=== PATIENT | female | born 1990 | race Caucasian/White ===

== ENCOUNTER 2017-05-07 18:55 | Inpatient (IN) | payer OTHER, SELFPAY ==
[2017-05-07] MEDS: Lactated Ringers 1,000 ML 50 ML IV (20:55)
[2017-05-07] MEDS: 0.9% Normal Saline 100 ML IV.SOLN. INTRA-UTER (21:22)
--- NOTE | 2017-05-07 21:26 | PCM.HP.OB ---
History Date of Admission: 05/07/17 Final LETY: 05/01/17 Final LETY Source: LMP Gestational age: 40 Weeks and 6 Days History of this : @ 40.6 wks here for IOL for Post EDC. Pt reports not feeling ctx. No bleeding or LOF. Pertinent Past Medical History: PMH: nasal bone fracture PSX: Nasal repair, Mole excision left shoulder Current Medications Acetaminophen (Tylenol) 325 - 650 mg PO Q4H PRN PRN PRN Reason: PAIN OR FEVER >100.4F Al Hydroxide/Mg Hydroxide (Mylanta Ii) 15 - 30 ml PO Q4H PRN PRN PRN Reason: INDIGESTION Citric Acid/Sodium Citrate (Bicitra) 30 ml PO UD PRN Lactated Ringer's () 1,000 mls @ 50 mls/hr IV .Q20H ETHAN Oxytocin/Sodium Chloride () 30 units in 500 mls @ 1 mls/hr IV .Q500H ETHAN Nalbuphine HCl (Nubain) 5 - 10 mg IV Q3H PRN PRN PRN Reason: PAIN (4-10/10) Ondansetron HCl (Zofran) 4 mg IV Q8H PRN PRN PRN Reason: NAUSEA Promethazine HCl (Phenergan (Ll)) 6.25 - 12.5 mg IV Q4H PRN PRN; Protocol PRN Reason: IF NAUSEA PERSISTS Sodium Chloride () 5 - 15 ml IV UD ETHAN Smoking Status: Never smoker Alcohol: None Drug Use: none Number of Fetus(es): 1 Physical Exam General: Alert, Oriented x3 Abdomen: Soft, Non Tender, Gravid Estimated gestational size: Appropriate for gestational size Presentation: Cephalic Cervix Dilation (cm): 1 Station: -2 Effacement (%): 70 Assessment/Plan 27yo @ 40.6 wks for IOL for post edc 1) vieyra/pitocin 2) Monitor fhr/toco 3) PNL reviewed, HIV neg, RUB imm, syphilis neg, HEP B neg, GBS neg 4) anticipate
--- NOTE | 2017-05-07 21:30 | PCM.PN.BLA ---
Progress Note transcervical vieyra placed without difficulty. 30cc NS placed. FHR: 140s mod antonieta + accels no decels. Category1 reactive. TOCO; irregular.
[2017-05-07 21:39] LABS: Hematocrit 38.4 % (37-47); Mean Corp Hgb Conc 33.9 g/gl (32-36); Mean Corpuscular Hgb 31.3 pg (27.0-32.0); Mean Corpuscular Volume 92.5 fL (81-99); Mean Platelet Vol. 9.7 fl (6.2-12.0); Platelet Count 170 K/mm3 (150-450); RBC Distribution Width CV 13.3 % (11.6-14.6); RBC Distribution Width SD 44.4 fl (35.1-43.9); Red Blood Count 4.15 M/mm3 (4.2-5.4); White Blood Count 11.8 K/mm3 (4.4-11.0)
[2017-05-07 21:41] LABS: Scan Indicated on CBC? Y/N NO
[2017-05-07 22:03] VITALS: BMI 34.1
[2017-05-08] MEDS: Lactated Ringers 1,000 ML 50 ML IV ×5 (05:07→23:47)
[2017-05-08] MEDS: Oxytocin 30 units/NS 500 ml 30 UNITS/500 ML IV.SOLN IV (05:21)
[2017-05-08] MEDS: Nalbuphine 10 MG/ML Ampul IV (15:05)
[2017-05-08] MEDS: 0.9% Saline Lock 10 ML Syringe IV (19:34)
--- NOTE | 2017-05-08 21:55 | PN_ITS ---
Progress Note Patient has made slow change all day. Now significant change, /+1, mild caput. PRATEEK. FHTs normal baseline w/ moderate variability. Some early/ variable decels. Tocos- adequate contractions. Pelvis clinically adequate. EFW < 5000 gm. Comfortable w/ epidural. Cont. expectant management
[2017-05-09] VITALS (28 sets, daily range): BP systolic 107–144; BP diastolic 62–91; PULSE 99–127; RESP 15–20; TEMP 36.6–37.9; O2SAT 92–99
[2017-05-09] MEDS: Sodium Citrate/Citric Acid 30 ML UDC PO (02:23)
[2017-05-09] MEDS: Cefazolin 2 GM in 0.9% Normal Saline 100 ML IV ×2 (02:30→09:57)
[2017-05-09] MEDS: Oxytocin 30 units/NS 500 ml 30 UNITS/500 ML IV.SOLN 167 UNITS IV (02:39)
[2017-05-09] MEDS: Ketorolac 30 MG/ML Syringe IV ×3 (02:45→18:27)
--- NOTE | 2017-05-09 03:25 | PCM.OB.CSR ---
Delivery Classification: JOSEPH Final LETY: 05/01/17 Gestational age: 41 Weeks and 1 Days Indications for : - - arrest of dilation, prolonged active phase Description of Procedure: The patient was started for an induction of labor due to being 41 weeks gestation on 05/07/2017. She had a Alonso ripening that night. On the a.m. of 05/08/2017 she was ruptured for light meconium-stained fluid. Labor progressed slowly all day. She was 5-6 cm most of the day. Then she progressed to 8 then 8-9 and now 9. However, she is definitely had a prolonged active phase. When I discussed with the patient giving her some more time to see if she can get to complete versus section, she elects for section at this time. She has been trying to rest intermittently and is comfortable with her epidural. Her contraction pattern has been adequate all day. Despite this, the patient is exhausted, and even if she progressed to complete at this point I am not sure she will be able to adequately push. The patient was taken to the operating room. She was prepped and draped in the dorsal supine position with a leftward tilt. A Pfannenstiel skin incision was made approximately 2 cm above the symphysis pubis and carried through to underlying layer fascia with the scalpel. The fascia was incised incised in the midline and extended laterally with the Goodman scissors. The fascia was dissected off the rectus muscles with blunt and sharp dissection. The rectus muscles were in the midline and the peritoneum was entered [bluntly]. The peritoneal incision was stretched and the bladder blade was placed. The uterine incision was made in a low transverse fashion with the scalpel and extended superiorly and inferiorly with blunt dissection. The amniotic membranes were ruptured and mild meconium-stained fluid returned. The infant's head was brought to the incision in the flexed position and delivered without difficulty. The remainder of the infant was delivered with gentle traction and fundal pressure in the standard fashion. The mouth and nares were bulb suctioned. The cord was clamped and cut as the was stimulated. [Cord clamping was delayed]. The infant was handed off to the waiting nursing staff. The placenta was delivered with fundal massage and gentle traction in the standard fashion. The uterus was exteriorized and cleared of all clots and debris.. The uterine incision was closed with #1 Vicryl in a running locked fashion. A second layer of the same suture was used in an imbricating fashion and the incision was examined for hemostasis. There is some oozing along the peritoneal edges which was Bovie cauterized and some Karlee was placed. Hemostasis was noted. The uterus was placed back into the peritoneal cavity and hemostasis was assured. The rectus muscles were examined and any bleeding was Bovie cauterized. The parietal peritoneum and rectus muscles were closed en bloc with a #1 Vicryl suture. The rectus fascia was examined and the bleeding was Bovie cauterized and the rectus fascia was closed with #1 PDS suture in a running standard fashion. The subcutaneous tissue was examining and any bleeding was Bovie cauterized. [The subcutaneous tissue was reapproximated with 3-0 Vicryl suture.] The skin was closed in a subcuticular fashion [by the SLEEP LAB TECHNOLOGIST with me present in the labor and delivery suite]. All sponge, lap, and needle counts were correct. The patient was taken to her room for recovery in a stable condition. Amniotic Membrane Rupture Type: Artificial Amniotic Fluid Description: Lightly stained meconium Placenta Disposition: Sent to Pathology Drain: Alonso to straight drain Fluids Replaced: 500cc LR Cord Entanglement: Around neck x 1, loose Nuchal Cord Compression: Without compression Cord Vessel Description: 3 Vessels Esitmated Blood Loss (ml): 900 Gender: Female (1 minute): 8 (5 minute): 9 Delayed cord clamping: Yes Pre-op Antibiotic Given: - - zithromax - Admit VTE Documentation VTE Present on Admission: No VTE Mechan Device Prophylaxis: SCD's VTE Pharm Prophylaxis ordered?: No
--- NOTE | 2017-05-09 03:36 | OP.PCM_ITS ---
Delivery Classification: JOSEPH Final LETY: 05/01/17 Gestational age: 41 Weeks and 1 Days Indications for : - - arrest of dilation, prolonged active phase Description of Procedure: The patient was started for an induction of labor due to being 41 weeks gestation on 05/07/2017. She had a Alonso ripening that night. On the a.m. of 05/08 she was ruptured for light meconium-stained fluid. Labor progressed slowly all day. She was 5-6 cm most of the day. Then she progressed to 8 then 8-9 and now 9. However, she is definitely had a prolonged active phase. When I discussed with the patient giving her some more time to see if she can get to complete versus section, she elects for section at this time. She has been trying to rest intermittently and is comfortable with her epidural. Her contraction pattern has been adequate all day. Despite this, the patient is exhausted, and even if she progressed to complete at this point I am not sure she will be able to adequately push. The patient was taken to the operating room. She was prepped and draped in the dorsal supine position with a leftward tilt. A Pfannenstiel skin incision was made approximately 2 cm above the symphysis pubis and carried through to underlying layer fascia with the scalpel. The fascia was incised incised in the midline and extended laterally with the Goodman scissors. The fascia was dissected off the rectus muscles with blunt and sharp dissection. The rectus muscles were in the midline and the peritoneum was entered [bluntly]. The peritoneal incision was stretched and the bladder blade was placed. The uterine incision was made in a low transverse fashion with the scalpel and extended superiorly and inferiorly with blunt dissection. The amniotic membranes were ruptured and mild meconium-stained fluid returned. The 's head was brought to the incision in the flexed position and delivered without difficulty. The remainder of the infant was delivered with gentle traction and fundal pressure in the standard fashion. The mouth and nares were bulb suctioned. The cord was clamped and cut as the was stimulated. [Cord clamping was delayed]. The was handed off to the waiting nursing staff. The placenta was delivered with fundal massage and gentle traction in the standard fashion. The uterus was exteriorized and cleared of all clots and debris.. The uterine incision was closed with #1 Vicryl in a running locked fashion. A second layer of the same suture was used in an imbricating fashion and the incision was examined for hemostasis. There is some oozing along the peritoneal edges which was Bovie cauterized and some Karlee was placed. Hemostasis was noted. The uterus was placed back into the peritoneal cavity and hemostasis was assured. The rectus muscles were examined and any bleeding was Bovie cauterized. The parietal peritoneum and rectus muscles were closed en bloc with a #1 Vicryl suture. The rectus fascia was examined and the bleeding was Bovie cauterized and the rectus fascia was closed with #1 PDS suture in a running standard fashion. The subcutaneous tissue was examining and any bleeding was Bovie cauterized. [The subcutaneous tissue was reapproximated with 3-0 Vicryl suture.] The skin was closed in a subcuticular fashion [by the HIDE SPLITTER with me present in the labor and delivery suite]. All sponge, lap, and needle counts were correct. The patient was taken to her room for recovery in a stable condition. Amniotic Membrane Rupture Type: Artificial Amniotic Fluid Description: Lightly stained meconium Placenta Disposition: Sent to Pathology Drain: Alonso to straight drain Fluids Replaced: 500cc LR Cord Entanglement: Around neck x 1, loose Nuchal Cord Compression: Without compression Cord Vessel Description: 3 Vessels Esitmated Blood Loss (ml): 900 Gender: Female (1 minute): 8 (5 minute): 9 Delayed cord clamping: Yes Pre-op Antibiotic Given: - - zithromax - Admit VTE Documentation VTE Present on Admission: No VTE Mechan Device Prophylaxis: SCD's VTE Pharm Prophylaxis ordered?: No
--- NOTE | 2017-05-09 04:08 | PLAC_PTH ---
PATIENT: ISELA ENG LOC: [facility] U#:[id number] AGE/SX: 27/F ROOM: WP004 RE05/07/[address]: Dr. Dyan Ulloa MD : 1990 BED: 1 DIS: 05/12/2017 SPEC #: [id number] RECD: 05/09/17 09:30 STATUS: DIAZ REMatthias #: [id number] CASEY: 05/09/17 04:[address]: Dyan Ulloa DEPT: SURGICAL PATHOLOGY RECD BY: Sam Giorn ENTERED: 05/09/17 12:05 SP TYPE: PLACENTA OTHR DR: MD Dr. Nina Rasmussen MD Tissues: Placenta, NOS Procedures: Surgery Specimen Level V HEADER OPERATION: Primary section PRE-OP DIAGNOSIS: Prolonged rupture of membranes TISSUE SUBMITTED: Placenta MICROSCOPIC DIAGNOSIS Placenta: Placental disc - third trimester placenta (672 gm). Membranes ? mild acute chorioamnionitis. Umbilical cord - three blood vessels and no pathologic diagnosis. SJ:ellen 05/12/17 MICROSCOPIC DESCRIPTION Slides are reviewed. GROSS DESCRIPTION SPECIMEN: PLACENTA / CLINICAL INFORMATION: A. Weight: 4.052 kg B. Gestational Age: 41 weeks C. Sex: Female PLACENTAL WEIGHT (POST FIXATION): 672 gm PLACENTAL DIMENSIONS: 22 x 20 x 2.5 cm PLACENTAL SHAPE: Usual ovoid PLACENTAL WEIGHT FOR GESTATIONAL AGE: Over 99th percentile MEMBRANES - Present A. Insertion: Marginal B. Site of rupture from edge: 2 cm from edge of placental disc C. Color of membrane: Ruiz-pettit D. Abnormalities: None UMBILICAL CORD - Present A. Color: Ruiz-pettit B. Insertion: Near central C. Length: 31 cm D. Diameter: 1 to 1.5 cm E. Number of vessels: Three F. Abnormalities: None PLACENTAL DISC - Present A. Color of surface: Ruiz-pettit B. surface abnormalities: None C. Maternal cotyledons: Intact with minimal tears D. Attached retro placental clot: No clot E. Cut surface: Dark red and spongy F. Lesions: None G. Separate clot: Absent SECTIONS SUBMITTED: 1. Membrane roll and umbilical cord ( end notched) 2. Placental disc, and maternal surfaces 3. Placental disc, and maternal surfaces 4. Placental disc, and maternal surfaces AM:ellen 05/09/17 TC:2 CPT: 98837
[2017-05-09] MEDS: Methylergonovine 0.2 MG/ML Ampul IM (06:13)
--- NOTE | 2017-05-09 06:30 | NURSING ---
0600 pt off of recovery. fundus noted to be 2 fingerbreadths above umbilicus, firm and midline. peripad changed, moderate trickle of blood noted with fundal check. peripads [id number], fundus to 1 above umbilicus after trickle of lochia expressed, remains firm and midline. HR continues to be tachycardic 108-115. 0613 IM methergine given-pericare provided 0625 updated-orders received for CBC
--- NOTE | 2017-05-09 06:44 | NURSING ---
0640 CBC drawn, pt reported feeling more fluid leaking-moderate amt of rubra lochia noted to peripad-pad changed, fundus firm midline and one finer breadth above U-pad weighted 240ml 0645 HR 103 bp 118/68 0650 hr 103 bp 117/72-unit sec called notified to page to this RN phone [phone] returned page. notified of pad change again for 240ml-continue to have moderate trickles, fundus remains firm and one fingerbreadth above umbilicus-vital signs reviewed, order received from hemjael. Physician on way to unit
[2017-05-09 06:54] LABS: Hematocrit 30.7 % (37-47); Hemoglobin 10.5 g/dl (12.0-15.0); Mean Corp Hgb Conc 34.2 g/gl (32-36); Mean Corpuscular Hgb 32.1 pg (27.0-32.0); Mean Corpuscular Volume 93.9 fL (81-99); Mean Platelet Vol. 9.2 fl (6.2-12.0); Platelet Count 143 K/mm3 (150-450); RBC Distribution Width CV 13.1 % (11.6-14.6); RBC Distribution Width SD 43.4 fl (35.1-43.9); Red Blood Count 3.27 M/mm3 (4.2-5.4); White Blood Count 15.3 K/mm3 (4.4-11.0)
[2017-05-09] MEDS: Carboprost Tromethamine 250 MCG/ML Ampul IM (06:55)
[2017-05-09 06:56] LABS: Scan Indicated on CBC? Y/N NO
--- NOTE | 2017-05-09 06:58 | NURSING ---
0654 HR 104 bp 121/72 sp02 96% on 2 L 02 via nasal cannula temp 98.8 0655 hemabate given to left thigh-verified with Rasheed RN 0659 hr 102 bp 118/71 0701 peripad changed and [id number]
--- NOTE | 2017-05-09 07:30 | NURSING ---
Dr Gill in room, did ultrasound of uterus. Vag exam done and removed large clots from uterus. Pad weighed 411.
--- NOTE | 2017-05-09 07:41 | PCM.PN.BLA ---
Progress Note pt seen at bedside, Evaluated for bleeding- Manual exploration of uterus- Large clots in lower uterine segment 417g including pad weight. Ultrasound reveals no other signs of Retained POC. Pt has received methergine and Hemabate. Pt otherwise is asymptomatic- denies CP, SOB, dizziness. VS are stable at this time.
[2017-05-09] MEDS: Lactated Ringers 1,000 ML 100 ML IV ×2 (08:31→18:27)
[2017-05-09 09:52] LABS: Pathology Specimen OB SEE PATHOLOGY REPORT
[2017-05-09] MEDS: Senna/Docusate Sodium 1 Tablet PO (09:57)
[2017-05-09] MEDS: Acetaminophen 500 MG Tablet 1000 MG PO (10:11)
[2017-05-09 14:02] LABS: Hematocrit 28.7 % (37-47); Hemoglobin 9.9 g/dl (12.0-15.0); Mean Corp Hgb Conc 34.5 g/gl (32-36); Mean Corpuscular Hgb 32.4 pg (27.0-32.0); Mean Corpuscular Volume 93.8 fL (81-99); Platelet Count 146 K/mm3 (150-450); RBC Distribution Width CV 13.3 % (11.6-14.6); RBC Distribution Width SD 43.7 fl (35.1-43.9); Red Blood Count 3.06 M/mm3 (4.2-5.4); White Blood Count 15.8 K/mm3 (4.4-11.0)
[2017-05-09 14:03] LABS: Scan Indicated on CBC? Y/N NO
[2017-05-10] MEDS: Senna/Docusate Sodium 1 Tablet PO (00:39)
[2017-05-10 00:40] VITALS: BP 110/69; PULSE 108; RESP 18; TEMP 37; O2SAT 94
[2017-05-10] MEDS: 0.9% Saline Lock 10 ML Syringe IV ×4 (00:40→18:27)
[2017-05-10] MEDS: Ketorolac 30 MG/ML Syringe IV ×4 (00:40→18:27)
[2017-05-10 02:00] VITALS: RESP 16; O2SAT 97
[2017-05-10 04:30] VITALS: BP 106/63; PULSE 86; RESP 18; TEMP 36.6; O2SAT 99
[2017-05-10 05:11] LABS: Hematocrit 26.6 % (37-47); Mean Corp Hgb Conc 33.8 g/gl (32-36); Mean Corpuscular Hgb 32.3 pg (27.0-32.0); Mean Corpuscular Volume 95.3 fL (81-99); Mean Platelet Vol. 8.7 fl (6.2-12.0); Platelet Count 158 K/mm3 (150-450); RBC Distribution Width CV 13.4 % (11.6-14.6); Red Blood Count 2.79 M/mm3 (4.2-5.4); White Blood Count 14.7 K/mm3 (4.4-11.0)
[2017-05-10 05:13] LABS: Scan Indicated on CBC? Y/N NO
[2017-05-10 08:00] VITALS: BP 128/75; PULSE 80; RESP 16; TEMP 36.7
--- NOTE | 2017-05-10 09:25 | PCM.PN.OB ---
Subjective: Pain is controlled. No BM since Friday. Not passing much gas. - Physical Exam General: Alert, Oriented x3 Abdomen: Soft, Non Tender - ff mid & below umb; mild distension; incision - bandage c/d/i Extremities: No Calf Tenderness - (B) edema Vital Signs Temp Pulse Resp BP Pulse Ox 98.0 F 80 16 128/75 H 99 05/10/17 08:00 05/10/17 08:00 05/10/17 08:00 05/10/17 08:00 05/10/17 04:30 Oxygen Flow Rate (L/min) 1 Oxygen Delivery Method Room Air Weight: 186 lb 11.704 oz Body Mass Index (BMI) 34.1 Intake and Output for Last 24 Hours 05/08/17 05/09/17 05/10/17 23:59 23:59 23:59 Intake Total 3318 / 3318 4692 / 4692 481 / 481 Output Total 900 / 900 1900 / 1900 1100 / 1100 Balance 2418 / 2418 2792 / 2792 -619 / -619 Laboratory Tests Past 24 Hrs 05/09/17 05/10/17 13:50 04:55 WBC 15.8 H 14.7 H RBC 3.06 L 2.79 L Hgb 9.9 L 9.0 L Hct 28.7 L 26.6 L MCV 93.8 95.3 MCH 32.4 H 32.3 H MCHC 34.5 33.8 RDW 13.3 13.4 RDW Differential 43.7 44.0 H Plt Count 146 L 158 MPV 9.0 8.7 Assessment/Plan 27yo female POD#1 Routine care Heme - HDS, cbc reviewed GI - miralax for constipation, consider prune juice as well Routine care
[2017-05-10] MEDS: Polyethylene Glycol 3350 17 GM PACKET PO (09:39)
[2017-05-10 14:00] VITALS: BP 117/78; PULSE 14; RESP 15; TEMP 36.7; O2SAT 98
[2017-05-10 20:20] VITALS: BP 144/80; PULSE 110; RESP 16; TEMP 36.6; O2SAT 99
[2017-05-11] MEDS: Ketorolac 30 MG/ML Syringe IV (00:15)
[2017-05-11] MEDS: 0.9% Saline Lock 10 ML Syringe IV (00:15)
[2017-05-11 03:50] VITALS: BP 115/64; PULSE 80; RESP 18; TEMP 36.3; O2SAT 97
--- NOTE | 2017-05-11 09:51 | PCM.PN.OB ---
Subjective: Pain controlled. She reports having BM's & passing gas. - Physical Exam General: Alert, Oriented x3 Abdomen: Soft, Non Tender, Non-Distended - ff mid & below umb; incision - bandage c/d/i Extremities: No Calf Tenderness Vital Signs Temp Pulse Resp BP Pulse Ox 97.4 F L 80 18 115/64 97 05/11/17 03:50 05/11/17 03:50 05/11/17 03:50 05/11/17 03:50 05/11/17 03:50 Oxygen Flow Rate (L/min) 1 Oxygen Delivery Method Room Air Weight: 186 lb 11.704 oz Body Mass Index (BMI) 34.1 Intake and Output for Last 24 Hours 05/09/17 05/10/17 05/12/17 23:59 23:59 00:59 Intake Total 4692 / 4692 481 / 481 Output Total 1900 / 1900 1400 / 1400 Balance 2792 / 2792 -919 / -919 Assessment/Plan A&P: 27yo female POD#2 Routine care Continue
--- NOTE | 2017-05-11 09:59 | DCINST_ITS ---
Discharge Diet: No Restrictions Discharge Activity: May not drive while taking narcotic pain medications., May Shower May resume sexual activity in: 4-6 weeks Weight Bearing Status: Weight bearing as tolerated Call your doctor if your incision/area has: Continuous Slow Oozing, Sudden Increased Bleeding, Increased Pain/ Swelling, Increased Redness, Foul Smelling Discharge, Swelling at the incision site Additional Instructions: If you experience any of the following, contact your healthcare provider. * Bleeding that soaks a pad every hour for 2 hours * Fever 100.4 or higher * Unrelieved incision or abdominal pain * Swelling, redness, discharge or bleeding from your incision or episiotomy site * Your incision begins to separate * Problems urinating (including inability to urinate or burning while urinating) . * Visual changes * Severe headache * Flu-like symptoms * Pain or redness in one of both of your breasts * Pain, warmth, tenderness or swelling in your legs, especially the calf area * Frequent nausea and vomiting * Symptoms of depression or anxiety If you experience any of the following, call 911 or go to the nearest Emergency Room. * Chest pain * Problems breathing * Seizure activity * Partial or complete paralysis of a body part, slurred speech, weakness or drooping of the face, or a sudden inability to walk or hold your balance Allergies/Adverse Reactions: Allergies No Known Allergies Allergy (Verified 05/07/17 22:03) Medications to take at Discharge Vits [Prenatabs FA ] 1 tablet PO DAILY 05/07/17 Docusate Sodium [Colace] 100 mg PO BID PRN #60 cap 05/11/17 Ferrous Sulfate [Slow Fe] 142 mg PO DAILY #30 tablet.er 05/11/17 Oxycodone HCl/Acetaminophen [Percocet 5/325] 1 tab PO Q6H PRN PRN 7 Days #28 tab 05/11/17 The following prescriptions were given: Oxycodone HCl/Acetaminophen [Percocet 5/325] 1 tab PO Q6H PRN PRN 7 Days #28 tab PRN Reason: Pain Ferrous Sulfate [Slow Fe] 142 mg PO DAILY #30 tablet.er Docusate Sodium [Colace] 100 mg PO BID PRN #60 cap PRN Reason: Constipation Follow-Up: Call to make an appointment with your doctor for an incision check in 1-2 weeks. You will also need a 6 week post- follow up appointment. Primary Care Physician: Jaxon Diaz MD [Primary Care Provider] -
[2017-05-11 10:00] VITALS: BP 122/85; PULSE 91; RESP 18; TEMP 36.4
[2017-05-11] MEDS: Naproxen 250 MG Tablet PO ×2 (10:29→22:47)
[2017-05-11] MEDS: oxyCODONE 5 MG Tablet PO (13:24)
[2017-05-11 17:30] VITALS: BP 122/80; PULSE 91; RESP 18; TEMP 36.6
[2017-05-11 19:35] VITALS: BP 131/77; PULSE 85; RESP 18; TEMP 36.6; O2SAT 98
[2017-05-12 03:00] VITALS: BP 112/72; PULSE 80; RESP 18; TEMP 36.7; O2SAT 98
[2017-05-12] MEDS: Naproxen 250 MG Tablet PO ×2 (06:51→14:13)
--- NOTE | 2017-05-12 08:42 | PCM.PN.OB ---
Subjective: painw ell controlled, average lochia, no n/V. + BM - Physical Exam General: Alert, Cooperative, No apparent distress Abdomen: Soft, Non-Distended, Tender - appropriately Extremities: Edema - 2+ Skin: Incision - clean, dry and intact, bandage removed Vital Signs Temp Pulse Resp BP Pulse Ox 98.0 F 80 18 112/72 98 05/12/17 03:00 05/12/17 03:00 05/12/17 03:00 05/12/17 03:00 05/12/17 03:00 Oxygen Flow Rate (L/min) 1 Oxygen Delivery Method Room Air Weight: 84.7 kg Body Mass Index (BMI) 34.1 Intake and Output for Last 24 Hours 05/10/17 05/11/17 05/12/17 22:59 23:59 23:59 Intake Total Output Total Balance Assessment/Plan POD#3 doing well breastfeedin g ready for d/c
--- NOTE | 2017-05-12 08:45 | DS.PCM_ITS ---
Discharge Date and Diagnosis Date of Admission: 05/07/17 Date of Discharge: 05/12/17 Hospital Course and Treatment Operations: - - Primary LTCS via pfannensteil skin incision Procedures: None Summary of Care Provided: The patient is a 27 year old female admitted for 41 week cervical ripening then induction of labor. Very prolonged active phase. C/s at 9 cm for this. Was 12 hrs progressing from 6-9. 8lb 15 oz born via c/s on 05/09. Postop course uncomplicated. By POD#3 she remained afebrile, was quoc. regular diet and was d/ [place] home w/ routine postop instructions and rxs. [] Discharge Diet: No Restrictions Discharge Activity: May not drive while taking narcotic pain medications., May Shower May resume sexual activity in: 4-6 weeks Weight Bearing Status: Weight bearing as tolerated Call your doctor if your incision/area has: Continuous Slow Oozing, Sudden Increased Bleeding, Increased Pain/ Swelling, Increased Redness, Foul Smelling Discharge, Swelling at the incision site Home Medications: Medications to take at Discharge Vits [Prenatabs FA ] 1 tablet PO DAILY 05/07/17 Docusate Sodium [Colace] 100 mg PO BID PRN #60 cap 05/11/17 Ferrous Sulfate [Slow Fe] 142 mg PO DAILY #30 tablet.er 05/11/17 Oxycodone HCl/Acetaminophen [Percocet 5/325] 1 tab PO Q6H PRN PRN 7 Days #28 tab 05/11/17 Following Prescrptions Were Given to Patient: Oxycodone HCl/Acetaminophen [Percocet 5/325] 1 tab PO Q6H PRN PRN 7 Days #28 tab PRN Reason: Pain Ferrous Sulfate [Slow Fe] 142 mg PO DAILY #30 tablet.er Docusate Sodium [Colace] 100 mg PO BID PRN #60 cap PRN Reason: Constipation Other Amb Orders: Electric breast pump Location: None Selected Primary Care Physician: Jaxon Diaz MD [Primary Care Provider] - Meaningful Use Info Meaningful Use Diagnoses (Choose all that apply): None applicable
[2017-05-12 10:00] VITALS: BP 136/87; PULSE 90; RESP 16; TEMP 36.8
[2017-05-12 14:40] VITALS: BP 129/84; PULSE 90; RESP 18; TEMP 36.5
== END 2017-05-12 14:40 | disposition home or self-care (01) | DRG 765 ==
PROVIDERS: Admitting Provider Obstetrics & Gynecology; Family Provider Family Medicine; PCP Family Medicine; Visit Provider Obstetrics & Gynecology
DX: O63.0 Prolonged first stage (of labor) (principal); O72.2 Delayed and secondary postpartum hemorrhage; O48.0 Post-term pregnancy; O77.0 Labor and delivery complicated by meconium in amniotic fluid; O69.81X0 Labor and delivery complicated by cord around neck, without compression, not applicable or unspecified; Z3A.40 40 weeks gestation of pregnancy; Z37.0 Single live birth
CPT/HCPCS: 59050; 85027; 86850; 86900; 88307; 99218; J7120; A4216; G0378; J2405

== ENCOUNTER 2018-10-17 16:12 | Emergency (ER) | payer OTHER, SELFPAY ==
[2018-10-17 16:13] VITALS: BP 130/79; PULSE 84; RESP 17; TEMP 36.7; O2SAT 94; BMI 27.3
[2018-10-17 17:35] LABS: Absolute Lymphocyte Count 1.36 X10^3/uL (0.83-4.51); Absolute Neutrophil Count 5.4 X10^3/uL (2.0-7.7); Basophil# 0.03 X10^3/uL; Basophil% 0.4 % (0-1); Eosinophils% 1.3 % (0-5); Hematocrit 43.7 % (37-47); Lymphocyte # 1.36 X10^3/ul (4.0); Lymphocyte % 18.1 % (19-41); Mean Corp Hgb Conc 34.3 g/dL (32-36); Mean Corpuscular Hgb 31.4 pg (27.0-32.0); Mean Corpuscular Volume 91.4 fL (81-99); Mean Platelet Vol. 8.4 fl (6.2-12.0); Monocyte# 0.65 X10^3/uL; Monocyte% 8.6 % (0-10); NRBC Flagged by Analyzer 0 % (0-5); Neutrophil # 5.37 X10^3/uL (2.7-7.7); Neutrophil % 71.3 % (47-70); Platelet Count 206 K/mm3 (150-450); RBC Distribution Width CV 11.5 % (11.6-14.6); RBC Distribution Width SD 38.7 fl (35.1-43.9); Red Blood Count 4.78 M/mm3 (4.2-5.4); White Blood Count 7.5 K/mm3 (4.4-11.0)
[2018-10-17] MEDS: 0.9% Normal Saline 1,000 ML 1000 ML IV (17:46)
[2018-10-17 17:52] LABS: hCG Titer Quant., Serum 469 mIU/mL (1-3)
[2018-10-17 17:53] LABS: Bacteria 0 SEEN /hpf (None Seen); Mucous, Urine 0 SEEN /hpf (<or=2+)
[2018-10-17 17:57] LABS: Color, Urine Yellow (Yellow); Glucose, Dipstick Normal (Normal); Ketone-Dipstick Negative (Negative); Leukocyte Esterase-Dipstick Negative /ul (Negative); Nitrite-Dipstick Negative (Negative); Occult Blood-Urine 250 /ul (Negative); Protein-Dipstick Negative (Negative); Urine Bilirubin Dipstick Negative (Negative); Urine Clarity Clear (Clear); Urine Urobilinogen Normal (Normal)
--- NOTE | 2018-10-17 17:59 | US_ITS ---
STUDY: FIRST TRIMESTER OBSTETRICAL ULTRASOUND REASON FOR EXAM: Female, 28 years old. Bleeding LMP: 09/05/2018 TECHNIQUE: Transvaginal TECHNICAL QUALITY: Adequate. PRIOR ULTRASOUND: None. FINDINGS: There is an early intrauterine gestational sac versus pseudosac. The mean sac diameter (MSD) measures 5 mm, indicating an estimated gestational age (EGA) of 5 weeks, 0 days. The gestational sac shape is within normal limits. There is no demonstrated yolk sac. The placenta is non-visualized. There is no demonstrated embryo ( pole). The estimated gestation age (EGA) by LMP is 6 weeks, 0 days. The estimated date of delivery (LETY) by LMP is 06/12/2019. The estimated gestation age (EGA) by US is 5 weeks, 0 days. The estimated date of delivery (LETY) by US is 06/19/2019. The uterus measures 9.7 x 6.2 x 4.2 cm.. There is no demonstrated uterine fibroid. The cervix is closed. The right ovary measures 2.9 x 2.1 x 2.3 cm.. There is a hypoechoic focus of the right ovary measuring 1.4 x 1.5 x 1.9 cm which may represent a corpus luteal cyst. There is no visualized right adnexal mass or complex lesion. The left ovary measures 3.9 x 2.3 x 2.4 cm.. There is no left ovarian cyst. There is no visualized left adnexal mass or complex lesion. There is no fluid in the cul de sac. US/Transvaginal w/Preg US IMPRESSION: There is an early intrauterine gestational sac versus pseudosac measuring 5 mm. No yolk sac or pole is identified at this time. Close interval ultrasound follow-up in 5-7 days with beta hCG correlation is recommended. Electronically Signed: Dean Briggs MD at 19:39 EDT , Service support ,
[2018-10-17 18:04] LABS: Red Blood Cells-Urine 0-5 SEEN /hpf (0-5); Squamous Epithelial Cells - UA 0-5 SEEN /hpf (5-10); White Blood Cells 0 SEEN /hpf (0-5)
--- NOTE | 2018-10-17 19:04 | ED.DCSUM_ITS ---
- ER Visit Summary Date of Service: 10/17/18 Chief Complaint: Vaginal bleeding, History of Present Illness: The patient is a [address] Gill. She reports she is a at 6 weeks of by her last menstrual period. She has not had an ultrasound. She reports that she began having spotting yesterday and that today her bleeding is similar to her normal period. She denies any vaginal discharge. No dysuria or frequency. She does report she has cramping suprapubic pain is 5 to 10 hours and 4-10 currently. Nothing makes this better or worse. Physical Examination: Vitals: Stable. Afebrile. General: Well-nourished and well-developed. Head: Normocephalic atraumatic. Neck: Supple, no lymphadenopathy. No JVD. Nontender. Cardiovascular: Regular rate and rhythm. No murmurs. Respiratory: No respiratory distress. Clear to auscultation bilaterally. Abdominal: Soft, nontender, nondistended, normal bowel sounds. No guarding, rebound, or peritoneal signs. Back: Nontender. Extremities: Nontender, no edema. Skin: Normal color, no rash. Neurologic: Alert and oriented ?3. Cranial nerves II through XII are intact. Normal strength and sensation. Psych: Normal affect. Test Results: Blood type is O+. This was not repeated. Quantitative hCG is 469. UA is negative. CBC shows segmented neutrophils 71 and lymphocytes of 18. Clinical Impression(s) from Imaging Studies Obstetrics Ultrasound 10/17/18 17:59 IMPRESSION: There is an early intrauterine gestational sac versus pseudosac measuring 5 mm. No yolk sac or pole is identified at this time. Close interval ultrasound follow-up in 5-7 days with beta hCG correlation is recommended. Electronically Signed: Dean Briggs MD at 19:39 EDT , Service support , Emergency Department Course and Treatment: Patient is resting comfortably. She refused pain medications. Treatment Plan: Patient was discussed with Dr. Gill. She will be discharged with a outpatient order for a repeat quantitative hCG in 2 days. She is instructed to follow-up in the office in 2 days for another exam. Return to the emergency department for any worsening symptoms. Disposition: To home in improved and stable condition. Impression: 1. Vaginal bleeding. 2. Quantitative hCG 469. This note was generated with [employer] dictation software. It may contain incorrect words, spelling, and punctuation that were not noted in review of the chart prior to signing ED Disposition - Plan for ED Patient: Disposition: Home or Assisted Living Instructions: POSSIBLE MISCARRIAGE (Threatened ) Referrals: Dyan Ulloa MD [STAFF PHYSICIAN] - 2 Days
== END 2018-10-17 20:20 | disposition home or self-care (01) ==
LOC: ED 18:01
PROVIDERS: Emergency Provider Emergency Medicine; Family Provider Family Medicine; PCP Family Medicine
DX: O20.9 Hemorrhage in early pregnancy, unspecified (principal); Z3A.01 Less than 8 weeks gestation of pregnancy
CPT/HCPCS: 76817; 81001; 84702; 85025; 96360; 99283; J7030; A4216

== ENCOUNTER → 2018-10-19 | Outpatient (CLI) | payer OTHER, SELFPAY ==
[2018-10-17 16:13] VITALS: BMI 27.3
[2018-10-19 10:39] LABS: hCG Titer Quant., Serum 153 mIU/mL (1-3)
== END | disposition home or self-care (01) ==
PROVIDERS: Family Provider Family Medicine; PCP Family Medicine; Referring Provider Obstetrics & Gynecology; Visit Provider Obstetrics & Gynecology
DX: Z34.90 Encounter for supervision of normal pregnancy, unspecified, unspecified trimester (principal)
CPT/HCPCS: 36415; 84702

== ENCOUNTER 2018-11-01 21:15 | Emergency (ER) | payer OTHER, SELFPAY ==
[2018-11-01 21:16] VITALS: BP 125/72; PULSE 61; RESP 15; TEMP 36.5; O2SAT 100; BMI 26.2
--- NOTE | 2018-11-01 21:34 | US_ITS ---
HISTORY: Pelvic pain, status post miscarriage 2 weeks ago. COMPARISON: None. TECHNIQUE: Real-time transabdominal and transvaginal (transvaginal sonography performed for better visualization of pelvic contents) sonographic imaging of the pelvis was performed. # of images incl. paperwork: 73 FINDINGS: Uterus: Uterus measures 8.6 x 5.5 x 4.6cm. No focal myoma. Endometrium: Endometrium measures 12mm in thickness. No endometrial fluid. Ovaries: The ovaries are normal in size with physiologic follicles. Normal arterial and venous waveforms are seen within bilateral ovaries. Adnexa: No adnexal mass or abnormality. Free fluid: No free fluid in the pelvic cul-de-sac. US/Pelvic (Non ) IMPRESSION: 1. Negative pelvic ultrasound. at 2330 Reported and signed by: Terry Dejesus MD Electronically Signed: Terry Dejesus MD at 23:29 EDT Tel , Service support ,
[2018-11-01 22:06] LABS: Absolute Lymphocyte Count 2.67 X10^3/uL (0.83-4.51); Absolute Neutrophil Count 3.6 X10^3/uL (2.0-7.7); Basophil# 0.04 X10^3/uL; Basophil% 0.6 % (0-1); Eosinophil# 0.19 X10^3/uL; Eosinophils% 2.7 % (0-5); Hematocrit 41.6 % (37-47); Hemoglobin 13.8 g/dL (12.0-15.0); Lymphocyte # 2.67 X10^3/ul (4.0); Lymphocyte % 37.4 % (19-41); Mean Corp Hgb Conc 33.2 g/dL (32-36); Mean Corpuscular Hgb 30.7 pg (27.0-32.0); Mean Corpuscular Volume 92.7 fL (81-99); Mean Platelet Vol. 8.6 fl (6.2-12.0); Monocyte# 0.59 X10^3/uL; Monocyte% 8.3 % (0-10); NRBC Flagged by Analyzer 0 % (0-5); Neutrophil # 3.63 X10^3/uL (2.7-7.7); Neutrophil % 50.7 % (47-70); Platelet Count 223 K/mm3 (150-450); RBC Distribution Width CV 11.5 % (11.6-14.6); Red Blood Count 4.49 M/mm3 (4.2-5.4); White Blood Count 7.1 K/mm3 (4.4-11.0)
[2018-11-01 22:13] LABS: Anion Gap 3 (5-15); BUN 13 mg/dL (7-18); BUN/Creat Ratio 17.1 RATIO (10-20); Calcium,Total 8.8 mg/dL (8.5-10.1); Chloride 108 mmol/L (98-107); Creatinine, Serum 0.76 mg/dL (0.55-1.02); EST Glomerular Filtration Rate 96 mL/min (>60); Est Glom Filt Rate - Afr Amer 116 mL/min (>60); Estimated Creatinine Clearance 83.16 ml/min; Glucose 73 mg/dL (74-106); Potassium 4.1 mmol/L (3.5-5.1); Sodium Level 142 mmol/L (136-145)
[2018-11-01 22:23] LABS: hCG Titer Quant., Serum < 1 mIU/mL (1-3)
[2018-11-01 22:38] LABS: Bacteria 0 SEEN /hpf (None Seen); Mucous, Urine 0 SEEN /hpf (<or=2+)
[2018-11-01 22:39] LABS: Color, Urine Yellow (Yellow); Glucose, Dipstick Normal (Normal); Ketone-Dipstick Negative (Negative); Leukocyte Esterase-Dipstick Negative /ul (Negative); Nitrite-Dipstick Negative (Negative); Occult Blood-Urine Negative /ul (Negative); Protein-Dipstick Negative (Negative); Urine Bilirubin Dipstick Negative (Negative); Urine Clarity Clear (Clear); Urine Urobilinogen Normal (Normal)
[2018-11-01 22:51] LABS: Red Blood Cells-Urine 0-5 SEEN /hpf (0-5); Squamous Epithelial Cells - UA 0-5 SEEN /hpf (5-10); White Blood Cells 0-5 SEEN /hpf (0-5)
--- NOTE | 2018-11-01 23:41 | ED.VIS.GEN ---
History of Present Illness Chief Complaint: Abd Pain Informant: Patient Onset: Today Context: Sudden Onset Current Severity: Mild Maximum Severity: Moderate Narrative: Patient presents with rather abrupt onset of lower pelvic pain tonight. She points to the area along the pelvic bone and just above this. She had a miscarriage 2 weeks ago. She has an upcoming appointment with her ESTABLISHMENT GUIDE on the , but has not been seen since her miscarriage. Blood type is O+. She has not had any vaginal bleeding or discharge. She has no urinary symptoms. She has no fever or chills. Past Medical History - Allergies and Home Meds Allergies/Adverse Reactions: Allergies No Known Allergies Allergy (Verified 11/01/18 21:19) Primary Care Physician: Jaxon Diaz MD [Primary Care Provider] - Prior records reviewed: Yes Past Medical History: - - Reviewed Lives: With Family Smoking Status: Never smoker Review of Systems General: Denies: Chills, Fever Eyes: Denies: Visual changes - bilaterally ENT: Denies: Bilateral ear pain Cardiovascular: Denies: Chest pain Respiratory: Denies: Dyspnea Gastrointestinal: Reports: Abdominal pain. Denies: Nausea, Vomiting, Diarrhea Genitourinary: Denies: Dysuria, Hematuria, Frequency Musculoskeletal: Denies: Back pain Skin: Denies: Rash Neurological: Denies: Headache Endocrine: Denies: Polyuria, Polydipsia Hematologic: Denies: Easy bruising Allergy: Denies: Uticaria Physical Exam Vital Signs/Narrative: Vital Signs Temp Pulse Resp BP Pulse Ox 11/01/18 21:16 97.7 F L 61 15 125/72 H 100 Inital Vital Signs reviewed: Yes General: Well nourished, Well developed Head: Normocephalic ENT: Moist mucous membranes Neck: Supple Cardiovascular: Regular rate, Regular rhythm Respiratory: No distress, CTA bilaterally Abdomen: Soft, Normal bowel sounds, Tender - Tenderness in the low suprapubic region along the pelvic bone.. Negative for: Guarding, Rebound tenderness Skin: Normal color Neurological: Alert, Oriented x3 Psychological: Normal affect Diagnostic/Tx/Re-eval Impressions Pelvis Ultrasound 11/01/18 21:34 IMPRESSION: 1. Negative pelvic ultrasound. at 2330 Reported and signed by: Terry Dejesus MD Electronically Signed: Terry Dejesus MD at 23:29 EDT Tel , Service support , 11/01/18 21:34 US Pelvic [Pelvic (Non )] [US] Stat Laboratory Results 11/01/18 11/01/18 11/01/18 21:45 21:45 21:45 WBC 7.1 RBC 4.49 Hgb 13.8 Hct 41.6 MCV 92.7 MCH 30.7 MCHC 33.2 RDW Std Deviation 39.0 RDW Coeff of Jean Marie 11.5 L Plt Count 223 MPV 8.6 Immature Gran % (Auto) 0.300 Neut % (Auto) 50.7 Lymph % (Auto) 37.4 Kaufman % (Auto) 8.3 Eos % (Auto) 2.7 Baso % (Auto) 0.6 Absolute Neuts (auto) 3.6 Absolute Lymphs (auto) 2.67 Nucleated RBC % 0 Sodium 142 Potassium 4.1 Chloride 108 H Carbon Dioxide 31.0 Anion Gap 3 L BUN 13 Creatinine 0.76 Estim Creat Clear Calc 83.16 Est GFR (MDRD) Af Amer 116 Est GFR (MDRD) Non-Af 96 BUN/Creatinine Ratio 17.1 Glucose 73 L Calcium 8.8 HCG, Quant < 1 Urine Color Urine Clarity Urine pH Ur Specific Austin Urine Protein Urine Glucose (UA) Urine Ketones Urine Occult Blood Urine Nitrite Urine Bilirubin Urine Urobilinogen Ur Leukocyte Esterase Urine RBC Urine WBC Ur Squamous Epith Cells Urine Bacteria Urine Mucus 11/01/18 22:32 WBC RBC Hgb Hct MCV MCH MCHC RDW Std Deviation RDW Coeff of Jean Marie Plt Count MPV Immature Gran % (Auto) Neut % (Auto) Lymph % (Auto) Kaufman % (Auto) Eos % (Auto) Baso % (Auto) Absolute Neuts (auto) Absolute Lymphs (auto) Nucleated RBC % Sodium Potassium Chloride Carbon Dioxide Anion Gap BUN Creatinine Estim Creat Clear Calc Est GFR (MDRD) Af Amer Est GFR (MDRD) Non-Af BUN/Creatinine Ratio Glucose Calcium HCG, Quant Urine Color Yellow Urine Clarity Clear Urine pH 6.0 Ur Specific Austin 1.020 Urine Protein Negative Urine Glucose (UA) Normal Urine Ketones Negative Urine Occult Blood Negative Urine Nitrite Negative Urine Bilirubin Negative Urine Urobilinogen Normal Ur Leukocyte Esterase Negative Urine RBC 0-5 SEEN Urine WBC 0-5 SEEN Ur Squamous Epith Cells 0-5 SEEN Urine Bacteria 0 SEEN Urine Mucus 0 SEEN - Medical Decision Making Patient declined anything for pain while here. Test results are discussed with patient and mother at bedside. She essentially was just looking for reassurance that there is no problems with her recent miscarriage. She will continue to monitor her symptoms and return if anything worsens. She was advised to call her ESTABLISHMENT GUIDE office this week to update them on her symptoms and follow-up on the ninth as scheduled. ED Disposition - Plan for ED Patient: Disposition: Home or Assisted Living Diagnosis: Pelvic pain Instructions: PELVIC PAIN, Unknown Cause Referrals: Nina Westbrook MD [STAFF PHYSICIAN] - Keep Lexus appointment
[2018-11-01 23:44] VITALS: BP 132/93; PULSE 60; RESP 18; O2SAT 99
== END 2018-11-01 23:49 | disposition home or self-care (01) ==
PROVIDERS: Emergency Provider Emergency Medicine; Family Provider Family Medicine; PCP Family Medicine
DX: R10.2 Pelvic and perineal pain (principal)
CPT/HCPCS: 76856; 80048; 81001; 84702; 85025; 93976; 99283; A4216

== ENCOUNTER 2019-02-07 19:02 | Emergency (ER) | payer OTHER, SELFPAY ==
[2019-02-07 19:03] VITALS: BP 132/73; PULSE 77; RESP 18; TEMP 36.8; O2SAT 100; BMI 28.7
--- NOTE | 2019-02-07 19:14 | US_ITS ---
STUDY: FIRST TRIMESTER OBSTETRICAL ULTRASOUND REASON FOR EXAM: Female, 28 years old pelvic pain and spotting LMP: 12/14/2018 TECHNIQUE: Transvaginal TECHNICAL QUALITY: Adequate. PRIOR ULTRASOUND: None. FINDINGS: There is visualization of a single gestational sac in a normal intrauterine position. The mean sac diameter (MSD) measures 3.3 cm, indicating an estimated gestational age (EGA) of 7 weeks, 5 days. The gestational sac shape is within normal limits. There is a visualized yolk sac. The yolk sac measures 3.2 mm. The placenta is non-visualized. There is visualization of a live embryo. The crown-rump length (CRL) measures 1.4 cm, indicating an estimated gestational age (EGA) of 7 weeks, 5 days. There is demonstrated cardiac activity with a heart rate of 146 bpm. The estimated gestation age (EGA) by LMP is 7 weeks, 6 days. The estimated date of delivery (LETY) by LMP is 09/20/2019. The estimated gestation age (EGA) by US is 8 weeks, 1 days. The estimated date of delivery (LETY) by US is 09/18/2019. The uterus measures 9.4 x 7.2 x 5.4 cm. There is no demonstrated uterine fibroid. The cervix is closed. The right ovary measures 3.5 x 3 x 1.8 cm. There is no right ovarian cyst. There is no visualized right adnexal mass or complex lesion. The left ovary measures 3.6 x 1.9 x 2.4 cm. There is no left ovarian cyst. There is no visualized left adnexal mass or complex lesion. There is no fluid in the cul de sac. US/Transvaginal w/Preg US IMPRESSION: Single live early intrauterine as above Electronically Signed: Ramón Forbes DO at 21:14 EST Tel , Service support ,
--- NOTE | 2019-02-07 19:18 | ED.DCSUM_ITS ---
- ER Visit Summary Date of Service: 02/07/19 Chief Complaint: with right sided pelvic pain and vaginal spotting History of Present Illness: The patient is a 28 F Ab1 with that being a miscarriage. Her blood type is O+. States she is about 8 weeks tomorrow. She has had no ultrasound as of this time with the . Her last menstrual period was 12/14/2018. States she has had vaginal spotting today. And right lower pelvic pain. She is never had an ectopic. She has had a prior miscarriage. She denies any dysuria or fever. Physical Examination: Young female no acute distress vital signs stable afebrile. HEENT exam unremarkable. Neck nontender no lymphadenopathy. Lungs clear to auscultation bilaterally. Heart regular rhythm no murmur rate about 80. Abdomen soft. Nondistended. Normal bowel sounds. She is tender on the right lower pelvis. Ryan's point and right upper quadrant unremarkable. Left side is unremarkable. Extremities moves all 4. No edema. Calves nontender. Back nontender. Neurologically she is awake and alert. Test Results: CBC normal white count of 9. Hemoglobin 14. Analysis normal no signs of infection. Quantitative hCG was 84,560. Prior blood type is O+. Ultrasound CAT view of the pelvis has been done awaiting for the results. Emergency Department Course and Treatment: vaginal bleeding with pelvic pain. Patient states her last quant within the last several days was over 62,000. Pelvic ultrasound T8 TVO be obtained. Her blood type is known is O+. Concern is for and bleeding versus miscarriage versus ectopic. Repeat exams patient is doing well when last examined at 21:42 PM. She was offered but deferred a pelvic exam at this time. If the ultrasound does not return soon will be turned over to the overnight physician to make final disposition. Treatment Plan: [] Disposition: [] Impression: Pelvic pain and vaginal bleeding Reportedly 8 weeks This note was generated with [employer] dictation software. It may contain incorrect words, spelling, and punctuation that were not noted in review of the chart prior to signing ED Disposition - Plan for ED Patient: Referrals: Jaxon Diaz MD [Primary Care Provider] -
[2019-02-07 19:31] LABS: Bacteria 0 SEEN /hpf (None Seen); Mucous, Urine 0 SEEN /hpf (<or=2+)
[2019-02-07 19:32] LABS: Absolute Lymphocyte Count 1.85 X10^3/uL (0.83-4.51); Absolute Neutrophil Count 7.2 X10^3/uL (2.0-7.7); Basophil# 0.03 X10^3/uL; Basophil% 0.3 % (0-1); Eosinophil# 0.05 X10^3/uL; Eosinophils% 0.5 % (0-5); Hematocrit 42.3 % (37-47); Hemoglobin 14.2 g/dL (12.0-15.0); Lymphocyte # 1.85 X10^3/ul (4.0); Mean Corp Hgb Conc 33.6 g/dL (32-36); Mean Corpuscular Hgb 30.8 pg (27.0-32.0); Mean Corpuscular Volume 91.8 fL (81-99); Mean Platelet Vol. 8.4 fl (6.2-12.0); Monocyte# 0.56 X10^3/uL; Monocyte% 5.7 % (0-10); NRBC Flagged by Analyzer 0 % (0-5); Neutrophil # 7.21 X10^3/uL (2.7-7.7); Neutrophil % 74.1 % (47-70); Platelet Count 217 K/mm3 (150-450); RBC Distribution Width CV 11.5 % (11.6-14.6); RBC Distribution Width SD 38.6 fl (35.1-43.9); Red Blood Count 4.61 M/mm3 (4.2-5.4); White Blood Count 9.7 K/mm3 (4.4-11.0)
[2019-02-07 19:33] LABS: Color, Urine Yellow (Yellow); Glucose, Dipstick Normal (Normal); Ketone-Dipstick Negative (Negative); Leukocyte Esterase-Dipstick Negative /ul (Negative); Nitrite-Dipstick Negative (Negative); Occult Blood-Urine 25 /ul (Negative); Protein-Dipstick Negative (Negative); Specific Gravity, Urine 1.015 (1.002-1.030); Urine Bilirubin Dipstick Negative (Negative); Urine Clarity Clear (Clear); Urine Urobilinogen Normal (Normal); Urine pH 6.5 (5.0 - 8.0)
[2019-02-07 19:40] LABS: Squamous Epithelial Cells - UA 0-5 SEEN /hpf (5-10)
[2019-02-07 19:41] LABS: Red Blood Cells-Urine 0-5 SEEN /hpf (0-5); White Blood Cells 0-5 SEEN /hpf (0-5)
--- NOTE | 2019-02-07 21:44 | DCINST.ED_ITS ---
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 Your blood count was normal. Your urinalysis was normal. Your quantitative test was 84,560
--- NOTE | 2019-02-07 22:15 | ED.DEP ---
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 Your blood count was normal. Your urinalysis was normal. Your quantitative test was 84,560
[2019-02-07 22:32] VITALS: PULSE 62; PULSE 63; RESP 18; O2SAT 99
== END 2019-02-07 22:33 | disposition home or self-care (01) ==
PROVIDERS: Emergency Provider Emergency Medicine; Family Provider Family Medicine; PCP Family Medicine
DX: O20.9 Hemorrhage in early pregnancy, unspecified (principal); O26.891 Other specified pregnancy related conditions, first trimester; R10.2 Pelvic and perineal pain; Z3A.01 Less than 8 weeks gestation of pregnancy
CPT/HCPCS: 76817; 81001; 84702; 85025; 99282; A4216

== ENCOUNTER → 2019-09-12 09:00 | Outpatient (CLI) | payer OTHER, SELFPAY | PROVIDERS: PCP Family Medicine; Referring Provider Obstetrics & Gynecology; Visit Provider Obstetrics & Gynecology | DX: Z11.59 Encounter for screening for other viral diseases (principal) | CPT/HCPCS: 87635; G2023; U0003 ==

== ENCOUNTER 2019-09-17 05:00 | Inpatient (IN) | payer OTHER, SELFPAY ==
--- NOTE | 2019-09-13 13:05 | HP.PCM_ITS ---
History and Physical Date of Admission: 09/17/19 HPI: The patient is a 29 year old female presenting for pre-operative visit. She is scheduled for?, for?39+ week and previous c/s on?09/17/19. ??Procedure discussed along with risks, benefits and complications. ?Other alternatives discussed for management. Consent form signed??Yes.? PAST MEDICAL HISTORY PAST MEDICAL HISTORY Diagnosis Date ? Asthma ? ? sports induced, childhood ? Basal cell carcinoma ? ? cheek ? Miscarriage ? ? Nasal bones, closed fracture 2003 ? 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 PMH - PAST MEDICAL HISTORY OF ? ? Color Vision - Normal ? ? ? Due May 01 2017 ? ? PAST SURGICAL HISTORY PAST SURGICAL HISTORY Procedure Laterality Date ? DELIVERY ONLY ? 05/09/2017 ? MOHS SURG, ADDL BLOCK ? ? ? right cheek ? PAST SURGICAL HISTORY OF ? 2010 ? broken nose repair ? PAST SURGICAL HISTORY OF ? ? ? benign mole excision left shoulder ? PAST SURGICAL HISTORY OF ? ? ? skin tag removal ? ? CURRENT MEDICATIONS Current Outpatient Medications Medication Sig Dispense Refill ? docusate sodium (COLACE ORAL) Take by mouth. ? ? ? Awevedjd-Et-Hht-Fe-FA (P D VITAMINS-FOLIC ACID) tab Take 1 tablet by mouth once daily. ? 0 ? No current facility-administered medications for this visit.? ? ALLERGIES:?Patient has no known allergies. ? PERSONAL HISTORY:? SOCIAL HISTORY Social History ? Tobacco Use ? Smoking status: Never Smoker ? Smokeless tobacco: Never Used Substance Use Topics ? Alcohol use: No ? Drug use: No ? FAMILY HISTORY:? FAMILY HISTORY FAMILY HISTORY Problem Relation Age of Onset ? No Known Problems Mother ? ? No Known Problems Father ? ? Diabetes Maternal Grandmother ? ? Hypertension Maternal Grandmother ? ? Heart Maternal Grandfather ? ? Hypertension Maternal Grandfather ? ? Diabetes Paternal Grandmother ? ? Heart Paternal Grandfather ? ? Heart Brother ?bicuspid aortic valve ? Hypertension Brother ? ? Kidney Disease Brother ?half brother, anytpical hemolytic uremic syndrome ? Heart Maternal Uncle ? ? Cancer Maternal Uncle ?brain ? other (Malignany hypothermia) Other ?1st cousin ? No Known Problems Daughter ? ? REVIEW OF SYMPTOMS: GENERAL: denies fevers or chills ENDOCRINOLOGY: has not been on steroids Cardiology : denies palpitations or chest pain Respiratory: denies SOB or cough Hematology: denies history of prolonged bleeding or easy bruising or VTE Allergy: Denies history of personal or family history of allergy to anesthesia ? ? PHYSICAL EXAMINATION: ? VITALS:?Weight 183 lb (83 kg), last menstrual period 12/14/2018. ? GENERAL:??The patient is well nourished, well hydrated in no acute distress. ?, The patient is oriented to time, place, and person. NECK:?Supple. No lynphadenopathy, normal thyroid, no thyromegaly. LUNGS:?Clear to auscultation bilaterally. no wheezes, rhonchi or rales HEART:?Regular rate and rhythm, Normal heart sounds and No murmurs or gallops GENITALIA:?Normal external genitalia, Urethral meatus normal, Bladder nontender, normal vagina and normal vaginal tone, normal cervix, normal uterus, size and consistency, normal adnexa without masses or tenderness and perineum WNL ? IMPRESSION:?previous c/s, 39 w 4 days on 09/17/2019 ? PLAN:???The risks/benefits/alternatives and personal involved for the planned?c- section?were reviewed with the patient. Her questions were answered to her satisfaction and she desires to proceed. ?Consent was signed. ?I reviewed with her postop instructions and expectations. ? ? I have reviewed and updated past medical and surgical history, medications and allergies. This H&P was completed in my office on 09/13/2019?
[2019-09-17] VITALS (16 sets, daily range): BP systolic 100–135; BP diastolic 52–76; PULSE 67–92; RESP 14–16; TEMP 36.1–37.1; O2SAT 95–100; BMI 33.7
[2019-09-17] MEDS: Lactated Ringers 1,000 ML 999 ML IV (05:45)
[2019-09-17 06:01] LABS: Absolute Neutrophil Count 6.2 X10^3/uL (2.0-7.7); Basophil# 0.02 X10^3/uL; Basophil% 0.2 % (0-1); Eosinophils% 1.2 % (0-5); Hematocrit 35.9 % (37-47); Hemoglobin 12.4 g/dL (12.0-15.0); Lymphocyte % 17.9 % (19-41); Mean Corp Hgb Conc 34.5 g/dL (32-36); Mean Corpuscular Hgb 32.9 pg (27.0-32.0); Mean Corpuscular Volume 95.2 fL (81-99); Mean Platelet Vol. 9.2 fl (6.2-12.0); Monocyte# 0.47 X10^3/uL; Monocyte% 5.6 % (0-10); NRBC Flagged by Analyzer 0 % (0-5); Neutrophil # 6.21 X10^3/uL (2.7-7.7); Platelet Count 149 K/mm3 (150-450); RBC Distribution Width CV 12.3 % (11.6-14.6); RBC Distribution Width SD 42.5 fl (35.1-43.9); Red Blood Count 3.77 M/mm3 (4.2-5.4); White Blood Count 8.4 K/mm3 (4.4-11.0)
[2019-09-17] MEDS: Acetaminophen 500 MG Tablet 1000 MG PO ×3 (06:01→18:07)
[2019-09-17] MEDS: Lactated Ringers 1,000 ML 150 ML IV (07:05)
[2019-09-17] MEDS: Sodium Citrate/Citric Acid 30 ML UDC PO (07:14)
[2019-09-17] MEDS: Cefazolin 2 GM in 0.9% Normal Saline 100 ML IV (07:24)
--- NOTE | 2019-09-17 08:17 | OP.PCM_ITS ---
Delivery Classification: Scheduled Final LETY: 09/20/19 Final LETY Source: US <20 weeks Gestational age: 39 Weeks and 4 Days drivers' cash clerk: Allan Espinoza Type of Anesthesia:: Spinal Special Medications: none Implants Used: none Date of Procedure: 09/17/19 Pre-Operative Diagnosis: 39 weeks, previous c/s Post-Operative Diagnosis: same Description of Procedure: The patient was taken to the operating room. She was prepped and draped in the dorsal supine position with a leftward tilt. A Pfannenstiel skin incision was made approximately 2 cm above the symphysis pubis and carried through to underlying layer fascia with the scalpel. The fascia was incised incised in the midline and extended laterally with the Goodman scissors. The fascia was dissected off the rectus muscles with blunt and sharp dissection. The rectus muscles were in the midline and the peritoneum was entered bluntly. The peritoneal incision was stretched and the bladder blade was placed. The uterine incision was made in a low transverse fashion with the scalpel and e xtended superiorly and inferiorly with blunt dissection. The amniotic membranes were ruptured bluntly and clear amniotic fluid returned. The 's head was brought to the incision in the flexed position and delivered without difficulty. The remainder of the infant was delivered with gentle traction and fundal pressure in the standard fashion. The mouth and nares were bulb suctioned. The cord was clamped and cut as the infant was stimulated. Cord clamping was delayed. The infant was handed off to the waiting nursing staff. The placenta was delivered with fundal massage and gentle traction in the standard fashion. The uterus was exteriorized and cleared of all clots and debris. The cervix was dilated with a ring forcep. The uterine incision was closed with #1 Vicryl in a running locked fashion. A second layer of the same suture was used in an imbricating fashion. The incision was examined and was found to be hemostatic. The uterus was placed back into the peritoneal cavity and hemostasis was again confirmed. The rectus muscles were examined and any bleeding was Bovie cauterized. The parietal peritoneum and rectus muscles were closed en bloc with an 0 Vicryl running suture. The surgical teams outer gloves were then changed. The rectus fascia was examined and any bleeding was Bovie cauterized and the rectus fascia was closed with 1 Vicryl suture in a running standard fashion. The subcutaneous tissue was examining and any bleeding was Bovie cauterized. The subcutaneous tissue was reapproximated with 3-0 Vicryl suture. The skin was closed in a subcuticular fashion by the CNC GRINDER with me present in the labor and delivery suite. I performed the remainder of the procedure with assistance. All sponge, lap, and needle counts were correct. The patient was taken to her room for recovery in a stable condition. Amniotic Membrane Rupture Type: Artificial Amniotic Fluid Description: Clear Placenta Disposition: [facility] Drain: Alonso to straight drain Fluids Replaced: 800 cc Cord Entanglement: None Cord Vessel Description: 3 Vessels Gender: Male - Huy, 8lb 8oz (1 minute): 9 (5 minute): 9 Antibiotic Given: Ancef 2 grams IV x1 - Admit VTE Documentation VTE Present on Admission: No VTE Mechan Device Prophylaxis: SCD's VTE Pharm Prophylaxis ordered?: No Reason prophylaxis not ordered:: Procedure Not Indicated
[2019-09-17] MEDS: Oxytocin 30 units/NS 500 ml 30 UNITS/500 ML IV.SOLN 167 UNITS IV (08:54)
[2019-09-17] MEDS: Methylergonovine 0.2 MG/ML Ampul IM (09:15)
[2019-09-17] MEDS: Lactated Ringers 1,000 ML 100 ML IV (11:59)
[2019-09-17] MEDS: Ketorolac 30 MG/ML Syringe IV ×2 (14:24→20:37)
[2019-09-17] MEDS: 0.9% Saline Lock 10 ML Syringe IV (20:37)
[2019-09-18] MEDS: Acetaminophen 500 MG Tablet 1000 MG PO ×4 (00:06→20:18)
[2019-09-18] MEDS: 0.9% Saline Lock 10 ML Syringe IV (02:25)
[2019-09-18] MEDS: Ketorolac 30 MG/ML Syringe IV (02:25)
[2019-09-18 03:24] VITALS: BP 109/62; PULSE 65; RESP 16; TEMP 36.6
[2019-09-18 04:31] LABS: Hematocrit 36.3 % (37-47); Hemoglobin 12.1 g/dL (12.0-15.0); Mean Corp Hgb Conc 33.3 g/dL (32-36); Mean Corpuscular Hgb 32.7 pg (27.0-32.0); Mean Corpuscular Volume 98.1 fL (81-99); Mean Platelet Vol. 9.3 fl (6.2-12.0); Platelet Count 143 K/mm3 (150-450); RBC Distribution Width CV 12.5 % (11.6-14.6); White Blood Count 12.7 K/mm3 (4.4-11.0)
[2019-09-18 04:33] LABS: Scan Indicated on CBC? Y/N NO
[2019-09-18] MEDS: Naproxen 250 MG Tablet 500 MG PO ×2 (08:54→17:30)
[2019-09-18 09:00] VITALS: BP 103/68; PULSE 77; RESP 16; TEMP 36.9
--- NOTE | 2019-09-18 09:16 | PCM.PN.OB ---
Subjective: Patient seen at bedside. Resting in bed. Pain controlled with PO medication. Plan is to increase ambulation today. Voiding without difficulty. going well. Objective: Dressing is dry and intact Fundus firm at U - Physical Exam Vitals/I&O's: Vital Signs Temp Pulse Resp BP Pulse Ox 97.9 F 65 16 109/62 99 09/18/19 03:24 09/18/19 03:24 09/18/19 03:24 09/18/19 03:24 09/17/19 17:00 Oxygen Delivery Method Room Air Weight: 184 lb 4.8 oz Body Mass Index (BMI) 33.7 Intake and Output for Last 24 Hours 09/16/19 09/17/19 09/18/19 23:59 23:59 23:59 Intake Total 2817.5 / 2817.5 Output Total 1125 / 1125 Balance 1692.5 / 1692.5 General: Alert, Oriented x3 Neck: Supple Lungs: Normal air movement Cardiovascular: Regular rate Abdomen: Soft, Non Tender, Passing Flatus Neurological: Cranial nerves II-XII grossly intact Psych/Mental Status: Normal Affect Laboratory Results 09/18/19 04:15: WBC 12.7 H, RBC 3.70 L, Hgb 12.1, Hct 36.3 L, MCV 98.1, MCH 32.7 H, MCHC 33.3, RDW Std Deviation 45.0 H, RDW Coeff of Jean Marie 12.5, Plt Count 143 L, MPV 9.3 Current Medications Acetaminophen (Tylenol) 1,000 mg PO Q6 [facility] Last Admin: 09/18/19 06:02 Dose: 1,000 mg Documented by: Bisacodyl (Dulcolax) 10 mg RECTAL UD PRN PRN Reason: If no BM Hydrocortisone (Hytone) 1 applic TOPICAL TID PRN PRN; Protocol PRN Reason: Discomfort Lactated Ringer's () 1,000 mls @ 100 mls/hr IV .Q10H [facility] Last Admin: 09/18/19 05:09 Dose: Not Given Documented by: Naloxone HCl 4 mg/ Dextrose 504 mls @ 0 mls/hr IV .Q0M PRN; Protocol PRN Reason: Respiratory depression Methylergonovine Maleate (Methergine) 0.2 mg IM X1 PRN PRN Reason: Uterine Atony Last Admin: 09/17/19 09:15 Dose: 0.2 mg Documented by: Naloxone HCl (Narcan) 0.02 mg IV Q1M PRN PRN Reason: RR <10 and pt unresponsive Naproxen (Naprosyn) 500 mg PO Q8 [facility] Last Admin: 09/18/19 08:54 Dose: 500 mg Documented by: Ondansetron HCl (Zofran) 4 mg IV Q4H PRN PRN PRN Reason: Nausea Oxycodone HCl (Oxyir) 5 - 10 mg PO Q4H PRN PRN PRN Reason: Pain Score 4-10/10 Prochlorperazine Edisylate (Compazine Iv) 10 mg IV Q6H PRN PRN PRN Reason: NAUSEA Senna/Docusate Sodium (Senokot-S, Shalini-Colace) 0 tablet PO DAILY [facility] Last Admin: 09/17/19 10:44 Dose: Not Given Documented by: Simethicone (Mylicon) 80 mg PO PCHS PRN PRN Reason: Indigestion/stomach pain Sodium Chloride () 5 - 15 ml IV UD PRN PRN Reason: SALINE FLUSH Last Admin: 09/18/19 02:25 Dose: 10 ml Documented by: Medical Necessity - Tobacco Use Smoking Status: Never smoker Assessment/Plan A/P Post-Op repeat C/S Day #1 Routine care Pain management Anticipate discharge home tomorrow
[2019-09-18] MEDS: Senna/Docusate Sodium 1 Tablet PO (11:58)
[2019-09-18 13:00] VITALS: BP 99/65; PULSE 72; RESP 16; TEMP 36.7
[2019-09-18 20:35] VITALS: BP 107/70; PULSE 69; RESP 18; TEMP 36.6
[2019-09-19] MEDS: Naproxen 250 MG Tablet 500 MG PO ×2 (01:17→09:31)
[2019-09-19 01:19] VITALS: BP 103/71; RESP 12; TEMP 36.3
[2019-09-19] MEDS: Acetaminophen 500 MG Tablet 1000 MG PO ×2 (01:30→07:57)
[2019-09-19 08:15] VITALS: BP 124/81; PULSE 76; RESP 18; TEMP 36.9
--- NOTE | 2019-09-19 08:19 | NURSING ---
encouraged ambulation, ngs diet. positioned on right side with left leg bent to aid in relieving gas pressure. Will give mylicon
--- NOTE | 2019-09-19 09:15 | DCINST_ITS ---
Discharge Diet: No Restrictions Discharge Activity: May Not Drive - for 1st 2 weeks home, May Shower May resume sexual activity in: 4-6 weeks Weight Bearing Status: Weight bearing as tolerated Suture Line Care: Avoid Pulling/Pushing Cleanse incision/area with: Soap & Water Additional Instructions: If you experience any of the following, contact your healthcare provider. * Bleeding that soaks a pad every hour for 2 hours * Fever 100.4 or higher * Unrelieved incision or abdominal pain * Swelling, redness, discharge or bleeding from your incision or episiotomy site * Your incision begins to separate * Problems urinating (including inability to urinate or burning while urinating). * Visual changes * Severe headache * Flu-like symptoms * Pain or redness in one of both of your breasts * Pain, warmth, tenderness or swelling in your legs, especially the calf area * Frequent nausea and vomiting * Symptoms of depression or anxiety If you experience any of the following, call 911 or go to the nearest Emergency Room. * Chest pain * Problems breathing * Seizure activity * Partial or complete paralysis of a body part, slurred speech, weakness or drooping of the face, or a sudden inability to walk or hold your balance Allergies/Adverse Reactions: Allergies No Known Allergies Allergy (Verified 02/07/19 19:03) Medications to take at Discharge Pnv No.95/Ferrous Fum/Folic AC [ Caplet] 1 ea PO DAILY 11/01/18 Follow-Up: Call to make an appointment with your doctor for an incision check in 1-2 weeks. You will also need a 6 week post- follow up appointment. Test results from this visit will be discussed in further detail at your follow- up appointment, if applicable. Primary Care Physician: Jaxon Diaz MD [Primary Care Provider] -
--- NOTE | 2019-09-19 09:15 | PCM.DCCSEC ---
Discharge Diet: No Restrictions Discharge Activity: May Not Drive - for 1st 2 weeks home, May Shower May resume sexual activity in: 4-6 weeks Weight Bearing Status: Weight bearing as tolerated Suture Line Care: Avoid Pulling/Pushing Cleanse incision/area with: Soap & Water Additional Instructions: If you experience any of the following, contact your healthcare provider. Bleeding that soaks a pad every hour for 2 hours Fever 100.4 or higher Unrelieved incision or abdominal pain Swelling, redness, discharge or bleeding from your incision or episiotomy site Your incision begins to separate Problems urinating (including inability to urinate or burning while urinating). Visual changes Severe headache Flu-like symptoms Pain or redness in one of both of your breasts Pain, warmth, tenderness or swelling in your legs, especially the calf area Frequent nausea and vomiting Symptoms of depression or anxiety If you experience any of the following, call 911 or go to the nearest Emergency Room. Chest pain Problems breathing Seizure activity Partial or complete paralysis of a body part, slurred speech, weakness or drooping of the face, or a sudden inability to walk or hold your balance Allergies/Adverse Reactions: Allergies No Known Allergies Allergy (Verified 02/07/19 19:03) Medications to take at Discharge Pnv No.95/Ferrous Fum/Folic AC [ Caplet] 1 ea PO DAILY 11/01/18 Follow-Up: Call to make an appointment with your doctor for an incision check in 1-2 weeks. You will also need a 6 week post- follow up appointment. Test results from this visit will be discussed in further detail at your follow-up appointment, if applicable. Primary Care Physician: Jaxon Diaz MD [Primary Care Provider] -
--- NOTE | 2019-09-19 09:17 | DS.PCM_ITS ---
Discharge Date and Diagnosis Date of Admission: 09/17/19 Date of Discharge: 09/19/19 Hospital Course and Treatment Operations: - - Primary LTCS via pfannensteil skin incision Summary of Care Provided: The patient is a 29 year old at 39.1 weeks gestation for scheduled repeat section. Course uncomplicated. Discharge home on 09/19/19.] - Physical Exam Vitals/I&O's: Vital Signs Temp Pulse Resp BP Pulse Ox 98.5 F 76 18 124/81 H 99 09/19/19 08:15 09/19/19 08:15 09/19/19 08:15 09/19/19 08:15 09/17/19 17:00 Oxygen Delivery Method Room Air Weight: 184 lb 4.8 oz Body Mass Index (BMI) 33.7 Intake and Output for Last 24 Hours 09/17/19 09/18/19 09/19/19 23:59 23:59 23:59 Intake Total 2817.5 / 2817.5 Output Total 1125 / 1125 Balance 1692.5 / 1692.5 General: Alert, Oriented x3 HEENT: Atraumatic Lungs: Normal air movement Cardiovascular: Regular rate Abdomen: Bowel Sounds Present, Soft, Passing Flatus Skin: No rashes, No breakdown, Incision - dressing is dry and intact Neurological: Cranial nerves II-XII grossly intact Psych/Mental Status: Normal Affect Current Medications Acetaminophen (Tylenol) 1,000 mg PO Q6H [facility] Last Admin: 09/19/19 07:57 Dose: 1,000 mg Documented by: Bisacodyl (Dulcolax) 10 mg RECTAL UD PRN PRN Reason: If no BM Hydrocortisone (Hytone) 1 applic TOPICAL TID PRN PRN; Protocol PRN Reason: Discomfort Naloxone HCl 4 mg/ Dextrose 504 mls @ 0 mls/hr IV .Q0M PRN; Protocol PRN Reason: Respiratory depression Methylergonovine Maleate (Methergine) 0.2 mg IM X1 PRN PRN Reason: Uterine Atony Last Admin: 09/17/19 09:15 Dose: 0.2 mg Documented by: Naloxone HCl (Narcan) 0.02 mg IV Q1M PRN PRN Reason: RR <10 and pt unresponsive Naproxen (Naprosyn) 500 mg PO Q8H [facility] Last Admin: 09/19/19 01:17 Dose: 500 mg Documented by: Ondansetron HCl (Zofran) 4 mg IV Q4H PRN PRN PRN Reason: Nausea Oxycodone HCl (Oxyir) 5 - 10 mg PO Q4H PRN PRN PRN Reason: Pain Score 4-10/10 Prochlorperazine Edisylate (Compazine Iv) 10 mg IV Q6H PRN PRN PRN Reason: NAUSEA Senna/Docusate Sodium (Senokot-S, Shalini-Colace) 0 tablet PO DAILY [facility] Last Admin: 09/18/19 11:58 Dose: 1 tablet Documented by: Simethicone (Mylicon) 80 mg PO PCHS PRN PRN Reason: Indigestion/stomach pain Last Admin: 09/19/19 01:29 Dose: 80 mg Documented by: Sodium Chloride () 5 - 15 ml IV UD PRN PRN Reason: SALINE FLUSH Last Admin: 09/18/19 02:25 Dose: 10 ml Documented by: Discharge Diet: No Restrictions Discharge Activity: May Not Drive - for 1st 2 weeks home, May Shower May resume sexual activity in: 4-6 weeks Weight Bearing Status: Weight bearing as tolerated Suture Line Care: Avoid Pulling/Pushing Cleanse incision/area with: Soap & Water Home Medications: Medications to take at Discharge Pnv No.95/Ferrous Fum/Folic AC [ Caplet] 1 ea PO DAILY 11/01/18 Primary Care Physician: Jaxon Diaz MD [Primary Care Provider] - Medical Necessity - Tobacco Use Smoking Status: Never smoker Meaningful Use Info Meaningful Use Diagnoses (Choose all that apply): None applicable
--- NOTE | 2019-09-19 09:25 | PN.OBGYN_ITS ---
Subjective: Patient seen at bedside. Feeling well today. Pain is controlled. Patient is up ambulating without difficulty. Voiding and passing flatus. going well. Patient desires discharge home today. - Physical Exam Vitals/I&O's: Vital Signs Temp Pulse Resp BP Pulse Ox 98.5 F 76 18 124/81 H 99 09/19/19 08:15 09/19/19 08:15 09/19/19 08:15 09/19/19 08:15 09/17/19 17:00 Oxygen Delivery Method Room Air Weight: 184 lb 4.8 oz Body Mass Index (BMI) 33.7 Intake and Output for Last 24 Hours 09/17/19 09/18/19 09/19/19 23:59 23:59 23:59 Intake Total 2817.5 / 2817.5 Output Total 1125 / 1125 Balance 1692.5 / 1692.5 General: Alert Oral: Moist Mucosa Lungs: Normal air movement Cardiovascular: Regular rate Abdomen: Bowel Sounds Present, Soft, Non Tender, Passing Flatus Skin: No rashes Neurological: Cranial nerves II-XII grossly intact Psych/Mental Status: Normal Affect Current Medications Acetaminophen (Tylenol) 1,000 mg PO Q6H [facility] Last Admin: 09/19/19 07:57 Dose: 1,000 mg Documented by: Bisacodyl (Dulcolax) 10 mg RECTAL UD PRN PRN Reason: If no BM Hydrocortisone (Hytone) 1 applic TOPICAL TID PRN PRN; Protocol PRN Reason: Discomfort Naloxone HCl 4 mg/ Dextrose 504 mls @ 0 mls/hr IV .Q0M PRN; Protocol PRN Reason: Respiratory depression Methylergonovine Maleate (Methergine) 0.2 mg IM X1 PRN PRN Reason: Uterine Atony Last Admin: 09/17/19 09:15 Dose: 0.2 mg Documented by: Naloxone HCl (Narcan) 0.02 mg IV Q1M PRN PRN Reason: RR <10 and pt unresponsive Naproxen (Naprosyn) 500 mg PO Q8H [facility] Last Admin: 09/19/19 01:17 Dose: 500 mg Documented by: Ondansetron HCl (Zofran) 4 mg IV Q4H PRN PRN PRN Reason: Nausea Oxycodone HCl (Oxyir) 5 - 10 mg PO Q4H PRN PRN PRN Reason: Pain Score 4-10/10 Prochlorperazine Edisylate (Compazine Iv) 10 mg IV Q6H PRN PRN PRN Reason: NAUSEA Senna/Docusate Sodium (Senokot-S, Shalini-Colace) 0 tablet PO DAILY [facility] Last Admin: 09/18/19 11:58 Dose: 1 tablet Documented by: Simethicone (Mylicon) 80 mg PO PCHS PRN PRN Reason: Indigestion/stomach pain Last Admin: 09/19/19 01:29 Dose: 80 mg Documented by: Sodium Chloride () 5 - 15 ml IV UD PRN PRN Reason: SALINE FLUSH Last Admin: 09/18/19 02:25 Dose: 10 ml Documented by: Medical Necessity - Tobacco Use Smoking Status: Never smoker Assessment/Plan Post OP repeat C/S day 2 Pain management Routine care Anticipate discharge home today
[2019-09-19] MEDS: Senna/Docusate Sodium 1 Tablet PO (09:31)
== END 2019-09-19 10:55 | disposition home or self-care (01) | DRG 788 ==
PROVIDERS: Admitting Provider Obstetrics & Gynecology; PCP Family Medicine; Referring Provider Obstetrics & Gynecology; Visit Provider Obstetrics & Gynecology
PROC: 10D00Z1 Extraction of Products of Conception, Low, Open Approach (ICD-10-PCS; CPT 59514; principal; 2019-09-17 07:15)
DX: O34.211 Maternal care for low transverse scar from previous cesarean delivery (principal); Z3A.39 39 weeks gestation of pregnancy; Z37.0 Single live birth
CPT/HCPCS: 85025; 85027; 86850; 86900; 86901; 99218; J7120; A4216; G0378

== ENCOUNTER 2020-08-25 07:27 | Day surgery (SDC) | payer OTHER, SELFPAY ==
[2019-09-17 05:33] VITALS: BMI 33.7
[2020-08-25] VITALS (7 sets, daily range): BP systolic 109–137; BP diastolic 68–89; PULSE 55–71; RESP 16; TEMP 36.3–37.6; O2SAT 96–100; BMI 28.2
[2020-08-25] MEDS: Lactated Ringers 1,000 ML 100 ML IV ×2 (07:59→09:45)
[2020-08-25 08:04] LABS: Internal QC Validated? YES +Cl - CLEAR BKGD
[2020-08-25 08:05] LABS: Pregnancy, Urine Negative Negative
--- NOTE | 2020-08-25 09:00 | NASAL_PTH ---
PATIENT: ISELA ENG LOC: [facility] [place] U#:[id number] AGE/SX: 30/F ROOM: RE08/25/[address]: Dr. Gabriel Land MD : 1990 BED: DIS: 08/25/2020 SPEC #: [id number] RECD: 08/25/20 10:35 STATUS: DIAZ REMatthias #: [id number] CASEY: 08/25/20 09:[address]: Gabriel Land DEPT: SURGICAL PATHOLOGY RECD BY: Lindsay Weaver ENTERED: 08/25/20 11:02 SP TYPE: NASAL SPEC OTHR DR: Dr. Jaxon Diaz MD Tissues: Nasal septum, NOS Procedures: Decalcification bone/plaque Surgery Specimen Level III HEADER OPERATION: Septoplasty PRE-OP DIAGNOSIS: Deviated nasal septum TISSUE SUBMITTED: Nasal septal contents MICROSCOPIC DIAGNOSIS Nasal septal contents: Fragments of cartilage and bone, clinically deviated nasal septum. SJ:ellen 08/30/2020 COMMENT A minute adherent fragment of respiratory mucosa with mild chronic inflammation is also noted. MICROSCOPIC DESCRIPTION Slides are reviewed. GROSS DESCRIPTION Received in fixative is one container labeled with the patient's name and designated nasal septal contents. The specimen consists of multiple irregular fragments of cartilage and bone that in aggregate measure 5 x 3 x 0.3 cm. The entire specimen is submitted in two cassettes after decalcification. / ANGELINA:ellen 08/25/20 TC:5 CPT: 26543, 51847
[2020-08-25] MEDS: Lidocaine 1% /Epi 1:100 (20ml) 20 ML Vial (09:23)
[2020-08-25] MEDS: Lidocaine 4% 50 ML Bottle (09:23)
[2020-08-25] MEDS: Oxymetazoline 0.05% 1 SPRAY SPRAY.BTL 15 SPRAY (09:23)
[2020-08-25] MEDS: Bacitracin 500 UNITS/GM PACKET (09:43)
--- NOTE | 2020-08-25 09:56 | PCM.OPRPT ---
Problems Associated Problem List Diagnoses (1) Deviated nasal septum: Report of Operation Date of Procedure: 08/25/20 Pre-Operative Diagnosis: Deviated nasal septum with nasal obstruction Post-Operative Diagnosis: Same Surgery/Procedure Performed:: Septoplasty Description of Surgical Findings:: Paradise is a 30-year-old female complains of chronic left-sided nasal obstruction failing to improve with medical therapy as well as discomfort on that side. Exam and showed marked leftward nasal septal deviation and surgical repair for alleviation of these complaints was offered and she was eager to proceed. The risks, alternatives, potential complications, and benefits were discussed at length and any questions answered to the patient and/or caregiver's satisfaction. Witnessed informed consent was obtained in the office, and the patient and/or caregiver was agreeable to proceed. Procedure went as follows: The patient was identified in the preoperative holding and brought to the operating room, was placed under general anesthesia and intubated. When appropriate anesthesia was obtained, pledgets soaked in a 50-50 mixture of oxymetazoline and 4% topical lidocaine were placed to decongest the nasal mucosa. The nasal septum was then injected beginning on the left side with 1% lidocaine with 100,000 epinephrine for a total of 4 mL. The pledgets were then removed and the left nasal cavity examined. There was noted to be significant nasal septal deviation to the left. Using a 15 blade scalpel, a hemitransfixion incision was then made on the left side and using the Jana elevator a subperichondrial/periosteal flap was elevated. The septum was then transected at the bony cartilaginous junction and a similar flap raised on the contralateral side. Using a Roosevelt forceps, the septum was then sharply transected superiorly and the deviated portions removed with a Olimpia forceps. Any inferior bony spur was then removed with a chisel allowing for midline placement of the nasal septum. The hemitransfixion incision was then closed with interrupted 4-0 chromic gut suture followed by a 4-0 plain quilting suture to reapproximate the mucosal flaps. Lomas splints coated with Bacitracin ointment were then applied to each nasal cavity and secured at the columella with a single 3-0 Prolene suture. An NG tube was then placed to decompress the stomach and the patient returned to anesthesia, revived and extubated having tolerated the procedure well. Surgeon: Gabriel Land Type of Anesthesia: General Anesthesiologist: Brad Whipple Specimen's removed: nasal septal contents Drains: none Estimated Blood Loss (mL): 25 mL Fluids Replaced: 1100 mL Grafts/Implants Used: Lomas splints Complications none Admit VTE Documentation VTE Present on Admission: No VTE Mechan Device Prophylaxis: SCD's VTE Pharm Prophylaxis ordered?: No
--- NOTE | 2020-08-25 10:00 | PCM.DC ---
Discharge Instructions Diet Discharge Diet: No restrictions Activity Discharge Activity: Return to Normal Activity and May Not Drive Dressing / Incision Call your doctor if your incision/area has: Sudden Increased Bleeding and Foul Smelling Discharge Call your doctor if you observe: Fever of 101 or Higher and Uncontrolled pain Follow Up Care Please Follow Up With: Gabriel Land MD When: 1 week Test Results: Test results from this visit will be discussed in further detail at your follow-up appointment, if applicable. Discharge Plan Admission Primary Reason for Your Visit: Deviated nasal septum Attending Provider: Gabriel Land Primary Care Provider: Jaxon Diaz Discharge Orders/Prescriptions Prescriptions: New acetaminophen 500 mg Tablet 500 mg PO Q4H PRN PRN (Reason: Pain Score 1-5/10) Qty: 0 RF: 0 hydrocodone-acetaminophen 5-325 mg Tablet 1 tab PO Q6H PRN PRN (Reason: Pain Score 6-10) 5 Days Qty: 10 RF: 0 ibuprofen 200 mg Tablet 200 mg PO Q6H PRN PRN (Reason: Pain Score 4-10/10) Qty: 0 RF: 0 Referrals / Follow Up: Jaxon Diaz MD [Primary Care Provider] - Disposition Disposition (needs filled in before D/C Order can be placed): Home, Self Care
[2020-08-25] MEDS: Ibuprofen 200 MG Tablet PO (11:04)
== END 2020-08-25 11:59 | disposition home or self-care (01) ==
LOC: SDC 07:27 → AC 07:28
PROVIDERS: Anesthesiology; PCP Family Medicine; Referring Provider Otolaryngology; Visit Provider Otolaryngology
PROC: (CPT 30520; principal; 2020-08-25 08:45)
DX: J34.2 Deviated nasal septum (principal); J34.89 Other specified disorders of nose and nasal sinuses; J45.909 Unspecified asthma, uncomplicated
CPT/HCPCS: 00160; 30520; 81025; 87426; 88304; 88311; C9803; J7120; J2405

== ENCOUNTER 2021-08-17 22:36 | Emergency (ER) | payer OTHER, SELFPAY ==
[2021-08-17 22:37] VITALS: BP 132/85; PULSE 76; RESP 15; TEMP 37.2; O2SAT 99; BMI 28.3
--- NOTE | 2021-08-17 23:00 | EDS_ITS ---
HPI HPI - Female History of Present Illness Chief Complaint: Vag Bld, Preg Informant: patient Pain Pain: Positive for Pelvic Pain Context: Gradual Onset Timing: Continuous Quality: Positive for Aching Location: - (pelvis, was on right but now on left) Current Severity: Mild Maximum Severity: Moderate Worsened by: - (nothing) Relieved by: - (nothing in particular) Bleeding Issue: Positive for Vaginal bleeding Context: Sudden Onset Current Severity: Heavy (tapered now) Associated Symptoms Associated Symptoms: Negative for Dysuria, Frequency, Urgency or Hematuria Test: Positive P: 2 Ab: 3 Narrative Narrative: Patient states she is about 10 weeks , she does started bleeding very heavily less than an hour ago and is scheduled to drive to [place] for a trip to see family, and she is leaving in about an hour from now so she presents out of concern. She sees Dr. Gill, she had an ultrasound in the office just over 1 week ago showing intrauterine and no signs of an ectopic or any other abnormality. She denies any systemic symptoms or near syncope/lightheadedness now. She is concerned because her bleeding was fairly heavy and appeared to contain either clots or tissue, although now the bleeding has tapered. [facility] Medical History Cancer History of Mohs micrographic surgery for skin cancer Non-smoker Wears glasses Home Medications acetaminophen 500 mg tablet 500 mg PO Q4H PRN PRN Pain Score 1-5/10 #0 tabs 08/25/20 [Rx Last Taken Unknown] hydrocodone-acetaminophen 5-325mg 5mg-325mg 1 tab PO Q6H PRN PRN Pain Score 6-10 5 days #10 tabs 08/25/20 [Rx Last Taken Unknown] ibuprofen 200 mg tablet 200 mg PO Q6H PRN PRN Pain Score 4-10/10 #0 tabs 08/25/20 [Rx Last Taken Unknown] Allergy/AdvReac Type Severity Reaction Status Date / Time No Known Allergies Allergy Verified 08/17/21 22:40 Surgical History (Updated 08/18/20 @ 14:59 by Margie Stacy) History of Hx of nasal septoplasty Hx of wisdom tooth extraction Social History Smoking Status: Never smoker ROS ROS ED Constitutional Constitutional ED: Denies chills or fever(s) Eyes Eyes: Denies change in vision or diplopia ENT ENT ED: Denies rhinorrhea or sore throat Cardiovascular Cardiovascular: Denies chest pain or palpitations Respiratory/Chest Respiratory/Chest: Denies cough or dyspnea Gastrointestinal Gastrointestinal: Reports abdominal pain; Denies diarrhea, nausea or vomiting Genitourinary Genitourinary ED: Reports as per HPI; Denies dysuria or hematuria Musculoskeletal Musculoskeletal: Reports back pain; Denies neck pain Integumentary Denies abscess or rash Neurologic Neurologic: Denies headache(s), paresthesias or weakness Psychiatric Psychiatric: Denies anxiety or suicidal thoughts EXAM Physical Exam Const Vital Signs: 08/17/21 22:37 Temperature 98.9 F Temperature Source Temporal Pulse Rate 76 Respiratory Rate 15 Blood Pressure 132/85 H Blood Pressure Mean 100 Pulse Ox 99 Oxygen Delivery Method Room Air Positive well nourished and well developed General Appearance ED: well developed and NAD HEENT Reports moist mucous membranes normocephalic and atraumatic Eyes PERRL and EOMs intact bilaterally Neck full ROM and supple Resp normal respiratory effort and clear to auscultation bilaterally Cardio regular rate, regular rhythm and no murmurs Rate: Negative for tachycardic GI non-tender and non-distended Auscultation: normoactive bowel sounds Palpation: soft Back/Spine no CVA tenderness General Back: other FROM Extremity normal to inspection General Extremety ED: Negative for edema, pulses abnormal or tenderness General Extremity: Negative for edema or pulses abnormal Neuro oriented x3, CN's II-XII intact bilaterally and no sensory deficits noted Sensorium / Orientation: awake and alert Motor Exam: strength 5/5 throughout Skin no rashes or lesions noted and no wounds MDM MDM MDM Narrative Medical decision making narrative: Patient presents when ultrasound not available, I performed a bedside screening ultrasound with our small ultrasound, transabdominally, that showed a single live intrauterine with heart tones of 188 and good movement and good amniotic fluid. At this time, since the patient had a transvaginal ultrasound in the office that showed no signs of an ectopic , I do not think that she needs a higher quality ultrasound right now in order to prove that she does not have an ectopic. She is reassured that she has a single live intrauterine right now, advised to follow-up closely with her [facility]. She was offered Tylenol for her abdominal pain, she states it is not that bad right now and going away and declines. Her blood type is O+, no RhoGAM indicated. Procedures Other Procedures Procedure(s): Bedside OB ultrasound: Single live intrauterine with motion and a visible attached cord, heart tones 188 Discharge Plan Triage Chief Complaint: Vag Bld, Preg ED Provider: Travis Ma Dx/Rx/DC Orders Clinical Impression: , threatened Instructions: ED Possible Miscarriage ... Prescriptions: No Action acetaminophen 500 mg Tablet 500 mg PO Q4H PRN PRN (Reason: Pain Score 1-5/10) Qty: 0 0RF hydrocodone-acetaminophen 5-325 mg Tablet 1 tab PO Q6H PRN PRN (Reason: Pain Score 6-10) 5 Days Qty: 10 0RF ibuprofen 200 mg Tablet 200 mg PO Q6H PRN PRN (Reason: Pain Score 4-10/10) Qty: 0 0RF Primary Care Provider: Jaxon Diaz Referrals: Jaxon Diaz MD [Primary Care Provider] - Nina Westbrook MD [STAFF PHYSICIAN] - As soon as possible (call to discuss follow up in context of vaginal bleeding during ) Disposition Disposition: Home, Self Care
== END 2021-08-17 23:14 | disposition home or self-care (01) ==
PROVIDERS: Emergency Provider Emergency Medicine; PCP Family Medicine; Visit Provider Emergency Medicine
DX: O20.0 Threatened abortion (principal); Z3A.10 10 weeks gestation of pregnancy
CPT/HCPCS: 99282

== ENCOUNTER 2022-03-13 09:30 | Inpatient (IN) | payer OTHER, SELFPAY ==
--- NOTE | 2022-03-12 13:38 | PCM.HP.BLA ---
History and Physical Date of Admission: 03/13/22 HPI: The patient is a 31 year old female presenting for pre-operative visit. She is scheduled for and tubal sterilization , for h/o c/s and sterilization reqeust on 03/13/22. Procedure discussed along with risks, benefits and complications. Other alternatives discussed for management. Consent form signed? Yes. ? ? PAST MEDICAL HISTORY PAST MEDICAL HISTORY Diagnosis Date ? Asthma ? ? sports induced, childhood ? Basal cell carcinoma ? ? cheek ? Miscarriage ? ? x3 ? Nasal bones, closed fracture 2003 ? 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 PMH - PAST MEDICAL HISTORY OF ? ? Color Vision - Normal ? ? ? Due May 01 2017 ? ? PAST SURGICAL HISTORY PAST SURGICAL HISTORY Procedure Laterality Date ? DELIVERY ONLY ? 05/09/2017 ? SECTION HX ? 09/17/2019 ? RC/S low transverse ? MOHS TRUNK/ARM/LEG EA ADDL BLOCK ANY STAGE ? ? ? right cheek ? PAST SURGICAL HISTORY OF ? 2010 ? broken nose repair ? PAST SURGICAL HISTORY OF ? ? ? benign mole excision left shoulder ? PAST SURGICAL HISTORY OF ? ? ? skin tag removal ? PAST SURGICAL HISTORY OF ? 03/2021 ? sebacious cyst-back lipoma-right thigh ? [facility] ([facility]) ? CURRENT MEDICATIONS Current Outpatient Medications Medication Sig Dispense Refill ? docosahexaenoic acid/epa (EPA-DHA ORAL) Take by mouth. ? ? ? PNV no.926-oksv-pubiy-dha-epa 27 mg iron-1000 mcg-300 mg cap Take by mouth. ? ? ? hydrocortisone (ANUSOL-HC) 2.5 % rectal cream by RECTAL route twice daily for 7 days. (Patient not taking: No sig reported) 28 g 0 ? ascorbic acid (VITAMIN C ORAL) Take by mouth. ? ? ? No current facility-administered medications for this visit. ? ? ALLERGIES: Patient has no known allergies. ? PERSONAL HISTORY: SOCIAL HISTORY Social History ? Tobacco Use ? Smoking status: Never ? Smokeless tobacco: Never Vaping Use ? Vaping Use: Never used Substance Use Topics ? Alcohol use: No ? Drug use: No ? FAMILY HISTORY: FAMILY HISTORY FAMILY HISTORY Problem Relation Age of Onset ? No Known Problems Mother ? ? No Known Problems Father ? ? Heart Brother ? ? bicuspid aortic valve ? Hypertension Brother ? ? Kidney Disease Brother ? ? half brother, anytpical hemolytic uremic syndrome ? Diabetes Maternal Grandmother ? ? Hypertension Maternal Grandmother ? ? Diabetes Maternal Grandfather ? ? Heart Maternal Grandfather ? ? Hypertension Maternal Grandfather ? ? Diabetes Paternal Grandmother ? ? Heart Paternal Grandfather ? ? No Known Problems Daughter ? ? Heart Maternal Uncle ? ? Cancer Maternal Uncle ? ? brain ? other (Malignany hypothermia) Other ? ? 1st cousin ? No Known Problems Son ? ? ? REVIEW OF SYMPTOMS: GENERAL: denies fevers or chills ENDOCRINOLOGY: has not been on steroids Cardiology : denies palpitations or chest pain Respiratory: denies SOB or cough Hematology: denies history of prolonged bleeding or easy bruising or VTE Allergy: Denies history of personal or family history of allergy to anesthesia ? PHYSICAL EXAMINATION: ? VITALS: Weight 187 lb (84.8 kg), last menstrual period 06/10/2021, unknown if currently . ? GENERAL: The patient is well nourished, well hydrated in no acute distress. , The patient is oriented to time, place, and person. NECK: Supple. No lynphadenopathy, normal thyroid, no thyromegaly. LUNGS: Clear to auscultation bilaterally. no wheezes, rhonchi or rales HEART: Regular rate and rhythm, Normal heart sounds, and No murmurs or gallops abd- soft, nontender, gravid ? IMPRESSION: 31 YOF G 6p2 w Estimated Date of Delivery: 03/17/22 ? PLAN: The risks/benefits/alternatives and personal involved for the planned c/s and tubal sterilization (bilateral salpingectomy if possible) were reviewed with the patient. Her questions were answered to her satisfaction and she desires to proceed. Consent was signed. I reviewed with her postop instructions and expectations. ? ? I have reviewed and updated past medical and surgical history, medications and allergies This H&P was completed in my office on 03/11/2022 Assessment & Plan Assessment/Plan (1) 39 weeks gestation of : (2) Previous delivery affecting : (3) Request for sterilization:
[2022-03-13] VITALS (14 sets, daily range): BP systolic 105–130; BP diastolic 64–80; PULSE 72–97; RESP 12–18; TEMP 36.2–37; O2SAT 95–98; BMI 33.9
[2022-03-13] MEDS: Lactated Ringers 1,000 ML 999 ML IV (10:20)
[2022-03-13 10:33] LABS: Absolute Lymphocyte Count 1.08 X10^3/uL (0.83-4.51); Absolute Neutrophil Count 5.2 X10^3/uL (2.0-7.7); Basophil# 0.02 X10^3/uL; Basophil% 0.3 % (0-1); Eosinophil# 0.05 X10^3/uL; Eosinophils% 0.7 % (0-5); Hematocrit 35.5 % (37-47); Hemoglobin 12.1 g/dL (12.0-15.0); Lymphocyte # 1.08 X10^3/ul (0.83-4.51); Lymphocyte % 15.8 % (19-41); Mean Corp Hgb Conc 34.1 g/dL (32-36); Mean Corpuscular Hgb 30.9 pg (27.0-32.0); Mean Corpuscular Volume 90.6 fL (81-99); Mean Platelet Vol. 8.8 fl (6.2-12.0); Monocyte% 5.9 % (0-10); NRBC Flagged by Analyzer 0 % (0-5); Neutrophil # 5.22 X10^3/uL (2.7-7.7); Neutrophil % 76.6 % (47-70); Platelet Count 163 K/mm3 (150-450); RBC Distribution Width CV 12.3 % (11.6-14.6); RBC Distribution Width SD 40.3 fl (35.1-43.9); Red Blood Count 3.92 M/mm3 (4.2-5.4); White Blood Count 6.8 K/mm3 (4.4-11.0)
[2022-03-13] MEDS: Lactated Ringers 1,000 ML 150 ML IV (11:19)
[2022-03-13] MEDS: Acetaminophen 500 MG Tablet 1000 MG PO ×3 (11:19→23:37)
[2022-03-13] MEDS: Sodium Citrate/Citric Acid 30 ML UDC PO (11:43)
[2022-03-13] MEDS: Cefazolin 2 GM in 0.9% Normal Saline 100 ML IV (11:49)
--- NOTE | 2022-03-13 11:53 | OP.PCM_ITS ---
Assessment & Plan (1) 39 weeks gestation of : (2) delivery delivered: (3) Request for sterilization: (4) Single live : (5) Previous delivery affecting : Maternal Data Information Final LETY: 03/17/22 Gestational age: 39 3/7 Details Operative Information Date of Procedure: 03/13/22 Pre-Operative Diagnosis: previous c/s, sterilization request Post-Operative Diagnosis: same Classification: Scheduled Procedure Type: low transverse (with bilateral salpingectomy) director of nursing #1: Trice Schwarz Type of Anesthesia: Spinal Anesthesiologist: Swetha Power Special Medications: duramorph Antibiotic Given: Ancef 2 grams IV x1 Drain: Alonso to straight drain Estimated Blood Loss: 800 Fluids Replaced: 900 Procedure Start Time: 12:11 Procedure Stop Time: 12:45 Time of Delivery: 12:13 Findings Description of Procedure: The patient was taken to the operating room. She was prepped and draped in the dorsal supine position with a leftward tilt. A Pfannenstiel skin incision was made approximately 2 cm above the symphysis pubis and carried through to underlying layer fascia with the scalpel. The fascia was incised incised in the midline and extended laterally with the Goodman scissors. The fascia was dissected off the rectus muscles with blunt and sharp dissection. The rectus muscles were in the midline and the peritoneum was entered bluntly. The peritoneal incision was stretched and the bladder blade was placed. The uterine incision was made in a low transverse fashion with the scalpel and extended superiorly and inferiorly with blunt dissection. The amniotic membranes were ruptured bluntly and clear amniotic fluid returned. The infant's head was brought to the incision in the flexed position and delivered without difficulty. The remainder of the was delivered with gentle traction and fundal pressure in the standard fashion. The mouth and nares were bulb suctioned. The cord was clamped and cut as the infant was stimulated. Cord clamping was delayed. The was handed off to the waiting nursing staff. The placenta was delivered with fundal massage and gentle traction in the standard fashion. The uterus was exteriorized and cleared of all clots and debris. The cervix was dilated with a ring forcep. The uterine incision was closed with #1 Vicryl in a running locked fashion. Several ghkkxh-cm-dgore sutures were needed to obtain hemostasis. The incision was examined and was found to be hemostatic. The uterus was placed back into the peritoneal cavity and hemostasis was again confirmed. The right tube was identified and followed out to the fimbriated end. The antimesenteric portion of the left tube was identified and followed up to the fimbriated end. The LigaSure device was used to clamp, seal and transect the mid antimesenteric portion of the tube. It was then used to clamp, seal and transect the insertion of the cornua. The specimen was handed off. The pedicles were hemostatic and the same procedure was performed on the contralateral side. Both sides were confirmed to be hemostatic. The rectus muscles were examined and any bleeding was Bovie cauterized. The parietal peritoneum and rectus muscles were closed en bloc with an 0 Vicryl running suture. . The rectus fascia was examined and any bleeding was Bovie cauterized and the rectus fascia was closed with 1 Vicryl suture in a running standard fashion. The subcutaneous tissue was examining and any bleeding was Bovie cauterized. The subcutaneous tissue was reapproximated with 3-0 Vicryl suture. The skin was closed in a subcuticular fashion. I performed the entire procedure with assistance. All sponge, lap, and needle counts were correct. The patient was taken to her room for recovery in a stable condition. Presentation: Positive for Vertex Amniotic Membrane Rupture Type: Spontaneous Amniotic Fluid Description: Clear Placental Delivery Description: Spontaneous Placenta Disposition: [facility] Specimen(s) Sent to Pathology: bilateral fallopian tubes Cord Vessel Description: 3 Vessels Cord Entanglement: Around neck x 1, loose Nuchal Cord Compression: Without compression Infant A Gender: Female (8lb 8 oz, Merino) (1 minute): 8 (5 minute): 9 Delayed Cord Clamping: Yes Complications Complications: none
--- NOTE | 2022-03-13 12:20 | FALS_PTH ---
PATIENT: ISELA ENG LOC: [facility] U#:[id number] AGE/SX: ROOM: WP004 RE03/13/[address]: Dr. Dyan Ulloa MD : 1990 BED: 1 DIS: 03/15/2022 SPEC #: [id number] RECD: 03/13/22 15:20 STATUS: DIAZ REMatthias #: [id number] CASEY: 03/13/22 12:[address]: Dyan Ulloa DEPT: SURGICAL PATHOLOGY RECD BY: Lindsay Weaver ENTERED: 03/14/22 09:59 SP TYPE: FALL TUBES OTHR DR: Dr. Jaxon Diaz MD Tissues: Fallopian tube Procedures: Surgery Specimen Level II HEADER OPERATION: Tubal ligation PRE-OP DIAGNOSIS: Sterilization TISSUE SUBMITTED: Fallopian tubes, suture in left tube MICROSCOPIC DIAGNOSIS Bilateral fallopian tubes, salpingectomy: Bilateral fallopian tubes, no pathologic diagnosis. SJ:ellen 03/15/2022 MICROSCOPIC DESCRIPTION Slides are reviewed. GROSS DESCRIPTION Received in fixative is one container labeled with the patient's name and designated bilateral fallopian tubes, left with suture. The specimen consists of two fallopian tubes with an average length of 6.5 cm and has an average diameter of 0.7 cm. Only one fallopian tube has a distinct normal fimbriated end. No mass lesions are identified. Pharmacy Service Associate sections are submitted in two cassettes as follows: 1 - right fallopian tube, 2 - left fallopian tube. / AM:ellen 03/14/2022 TC:4 CPT: 76251 x2
[2022-03-13] MEDS: Oxytocin 15 Units/NS 250ml 15 UNITS/250 ML IV.SOLN 83 UNITS IV (13:00)
[2022-03-13] MEDS: Ketorolac 30 MG/ML Syringe IV ×2 (13:24→19:49)
[2022-03-13 15:22] LABS: Pathology Specimen OB SEE PATHOLOGY REPORT
--- NOTE | 2022-03-13 15:25 | NURSING ---
Call placed to Dr. Ulloa's office to update that blood is noted in vieyra catheter bag. Spoke with the nurse and left message with her that Blood was noted by this RN in urine when patient was finished with surgery back in the OR but improved some during recovery. This RN noted that urine looked more blood tinged recently than it had 30 minutes prior. Waiting on a call back from Dr. Gill since Dr. Ulloa is out for the rest of the day.
--- NOTE | 2022-03-13 15:41 | NURSING ---
Report given to Lee House RN
[2022-03-13] MEDS: Lactated Ringers 1,000 ML 100 ML IV (16:15)
[2022-03-14 00:41] VITALS: BP 126/75; PULSE 64; RESP 16; TEMP 36.2; O2SAT 97
[2022-03-14] MEDS: Ketorolac 30 MG/ML Syringe IV ×2 (01:27→08:16)
[2022-03-14] MEDS: 0.9% Saline Lock 10 ML Syringe IV ×2 (01:28→08:16)
[2022-03-14 04:00] VITALS: BP 114/67; PULSE 77; RESP 16; TEMP 36.3; O2SAT 97
[2022-03-14 05:03] LABS: Hematocrit 30.8 % (37-47); Hemoglobin 10.6 g/dL (12.0-15.0); Mean Corp Hgb Conc 34.4 g/dL (32-36); Mean Corpuscular Hgb 31.5 pg (27.0-32.0); Mean Corpuscular Volume 91.7 fL (81-99); Platelet Count 135 K/mm3 (150-450); RBC Distribution Width CV 12.4 % (11.6-14.6); RBC Distribution Width SD 41.4 fl (35.1-43.9); Red Blood Count 3.36 M/mm3 (4.2-5.4); White Blood Count 11.1 K/mm3 (4.4-11.0)
[2022-03-14] MEDS: Acetaminophen 500 MG Tablet 1000 MG PO ×3 (05:35→19:06)
[2022-03-14] MEDS: Senna/Docusate Sodium 1 Tablet PO (08:16)
--- NOTE | 2022-03-14 08:16 | PN.OBGYN_ITS ---
Subjective Subjective Patient seen at bedside. infant. Ambulating and voiding without difficulty. Denies any headache, vision changes, SOB, CP or dizziness. Pain controlled at this time. Lochia minimal. Anticipates discharge home tomorrow. Objective Data Objective Data Vital Signs: Vital Signs Temp Pulse Resp BP Pulse Ox O2 Del Method 97.3 F L 77 16 114/67 97 Room Air 03/14/22 04:00 03/14/22 04:00 03/14/22 04:00 03/14/22 04:00 03/14/22 04:00 03/14/22 04:00 Oxygen Delivery Method Room Air Weight: 185 lb 6 oz Body Mass Index (BMI) 33.9 Intake & Output: Intake and Output for Last 24 Hours 03/12/22 03/13/22 03/14/22 23:59 23:59 23:59 Intake Total 2998.33 / 2998.33 Output Total 3200 / 3200 600 / 600 Balance -201.67 / -201.67 -600 / -600 Lab / Micro Data Result Diagrams: 03/14/22 04:58 Labs: Laboratory Results - last 24 hr 03/13/22 10:20: WBC 6.8, RBC 3.92 L, Hgb 12.1, Hct 35.5 L, MCV 90.6, MCH 30.9, MCHC 34.1, RDW Std Deviation 40.3, RDW Coeff of Jean Marie 12.3, Plt Count 163, MPV 8.8, Immature Gran % (Auto) 0.700, Neut % (Auto) 76.6 H, Lymph % (Auto) 15.8 L, [place] % (Auto) 5.9, Eos % (Auto) 0.7, Baso % (Auto) 0.3, Absolute Neuts (auto) 5.2, Absolute Lymphs (auto) 1.08, Nucleated RBC % 0 03/13/22 10:20: Blood Type O POSITIVE, Antibody Screen NEGATIVE 03/14/22 04:58: WBC 11.1 H, RBC 3.36 L, Hgb 10.6 L, Hct 30.8 L, MCV 91.7, MCH 31.5, MCHC 34.4, RDW Std Deviation 41.4, RDW Coeff of Jean Marie 12.4, Plt Count 135 L, MPV 9.0 ROS Eyes Eyes: Denies blurry vision, change in vision or spots in vision ENT HEENT: Denies dizziness or headache(s) Cardiovascular Cardiovascular: Denies abdominal pain, chest pain or dyspnea Respiratory/Chest Respiratory/Chest: Denies cough, dyspnea, shortness of breath at rest or shortness of breath with exertion Gastrointestinal Gastrointestinal: Denies abdominal pain, diarrhea or vomiting Genitourinary Genitourinary: Denies change in urinary stream, difficulty urinating or dysuria Musculoskeletal Musculoskeletal: Reports none Integumentary Integumentary: Denies rash Neurologic Neurologic: Denies dizziness, headache(s), memory loss or weakness Physical Exam Narrative Dressing is dry and intact Const alert and no apparent distress General Appearance: cooperative and comfortable Exam Limitations: no limitations HEENT normocephalic Eyes General Eye: normal appearance of both eyes Neck full ROM General: normal visual inspection Chest Chest: symmetrical chest wall rise Resp normal respiratory effort and normal air movement Effort and Inspection: symmetric chest movement Auscultation: clear to auscultation bilaterally Cardio regular rate and regular rhythm GI normal to inspection, nondistended, normoactive bowel sounds Back/Spine normal ROM Extremity full ROM and no calf tenderness General Extremity: normal exam except as noted Skin no rashes or lesions noted Neuro CN's II-XII intact bilaterally Psych mental status grossly normal Assessment & Plan (1) delivery delivered: (2) Care and examination of lactating mother: (3) Tubal ligation status: PLAN: Plan POD 1 Repeat Section with bilateral tubal ligation Pain control support Anticipate discharge home tomorrow
[2022-03-14 08:29] VITALS: BP 114/70; PULSE 73; RESP 16; TEMP 36.9; O2SAT 98
[2022-03-14 13:22] VITALS: BP 111/74; PULSE 78; RESP 16; TEMP 36.4; O2SAT 98
[2022-03-14] MEDS: Ibuprofen 600 MG Tablet PO ×2 (15:28→21:55)
[2022-03-14 17:26] VITALS: BP 124/71; PULSE 83; RESP 14; TEMP 36.6; O2SAT 99
[2022-03-14 20:00] VITALS: BP 113/78; PULSE 75; RESP 17; TEMP 36.2
[2022-03-15] MEDS: Acetaminophen 500 MG Tablet 1000 MG PO ×2 (01:18→07:26)
[2022-03-15 02:18] VITALS: BP 124/82; PULSE 71; RESP 17; TEMP 36.3
[2022-03-15] MEDS: Ibuprofen 600 MG Tablet PO (04:18)
--- NOTE | 2022-03-15 08:37 | PCM.PN.OB ---
Subjective Subjective Pt is doing well. She feels ready to go home. Pain is controlled. She is tolerating a regular diet without nausea or vomiting. She is ambulating and voiding without difficulty. Lochia is normal. She denies chest pain, shortness of breath, lightheadedness, dizziness. Objective Data Objective Data Vital Signs: Vital Signs Temp Pulse Resp BP Pulse Ox O2 Del Method 97.4 F L 71 17 124/82 H 99 Room Air 03/15/22 02:18 03/15/22 02:18 03/15/22 02:18 03/15/22 02:18 03/14/22 17:26 03/14/22 17:26 Oxygen Delivery Method Room Air Weight: 185 lb 6 oz Body Mass Index (BMI) 33.9 Intake & Output: Intake and Output for Last 24 Hours 03/13/22 03/14/22 03/15/22 23:59 23:59 23:59 Intake Total 2998.33 / 2998.33 Output Total 3200 / 3200 1200 / 1200 Balance -201.67 / -201.67 -1200 / -1200 Lab / Micro Data Result Diagrams: 03/14/22 04:58 Physical Exam Const alert and no apparent distress General Appearance: comfortable Resp normal respiratory effort GI soft to palpation GI Narrative: ATTP, non acute, dressing c/d/i Extremity no calf tenderness Extremity Narrative: 1+ edema bilaterally Assessment & Plan (1) delivery delivered: PLAN: POD#2 s/p RLTCS with sterilization. Meeting milestones for discharge. She desires to be discharged today. Home going instructions reviewed. Follow up in office in 1 week. (2) Tubal ligation status: (3) Care and examination of lactating mother: (4) Single live :
--- NOTE | 2022-03-15 08:42 | DCINST_ITS ---
Discharge Instructions Diet Discharge Diet: No restrictions Activity Discharge Activity: May Drive (Once you are no longer taking pain medication, and feel strong enough to slam on a brake or turn a steering wheel sharply) and May Shower May resume sexual activity in: 6 weeks Ice area for (Minutes): 15 Weight Bearing Status: Weight bearing as tolerated Lifting Restrictions: Nothing heavier than baby Dressing / Incision Call your doctor if your incision/area has: Continuous Slow Oozing, Sudden Increased Bleeding, Increased Pain/ Swelling, Increased Redness, Foul Smelling Discharge and Swelling at the incision site Call your doctor if you observe: Fever of 101 or Higher, Coldness, Increased Pain, Numbness or Tingling, Change in Color, Inability to urinate, Inability to have a bowel movement, Using more than 1 pad per hour, Shortness of breath, Dizziness, Fainting spells, Swelling in the ankles (Should improve after 1 week), Chest pain, Increased palpitations (irregular heartbeat), Calf discomfort and Uncontrolled pain Suture Line Care: Avoid Pulling/Pushing and Avoid Pinching/Bending Remove Dressing in: 4 days Cleanse incision/area with: Soap & Water Follow Up Care When: 1 week for incision check 6 weeks for visit Test Results: Test results from this visit will be discussed in further detail at your follow- up appointment, if applicable. Discharge Plan Admission Admit Date/Time: 03/13/22 09:30 Primary Reason for Your Visit: Delivery Attending Provider: Dyan Ulloa Primary Care Provider: Jaxon Diaz Instructions Patient Instructions: After a , Section Dc Discharge Orders/Prescriptions Prescriptions: New ibuprofen 600 mg tablet 600 mg PO Q6H PRN (Reason: pain) Qty: 30 0RF oxycodone-acetaminophen [Percocet] 5-325 mg tablet 1 tab PO Q6H PRN (Reason: pain) 7 Days Qty: 15 0RF docusate sodium [Colace] 100 mg capsule 100 mg PO BID Qty: 30 0RF Continued cdrnuzai-isv-Gq-FA 1 mg Tablet 1 tab PO Referrals / Follow Up: Jaxon Diaz MD [Primary Care Provider] - Disposition Disposition (needs filled in before D/C Order can be placed): Home, Self Care
[2022-03-15 09:00] VITALS: BP 119/79; PULSE 78; RESP 16; TEMP 36.4; O2SAT 96
== END 2022-03-15 10:40 | disposition home or self-care (01) | DRG 785 ==
PROVIDERS: Admitting Provider Obstetrics & Gynecology; PCP Family Medicine; Referring Provider Obstetrics & Gynecology; Visit Provider Obstetrics & Gynecology
PROC: 10D00Z1 Extraction of Products of Conception, Low, Open Approach (ICD-10-PCS; CPT 59514; principal; 2022-03-13 11:45)
DX: O34.211 Maternal care for low transverse scar from previous cesarean delivery (principal); O69.81X0 Labor and delivery complicated by cord around neck, without compression, not applicable or unspecified; Z30.2 Encounter for sterilization; Z3A.39 39 weeks gestation of pregnancy; Z37.0 Single live birth
CPT/HCPCS: 59025; 59050; 85025; 85027; 86850; 86900; 86901; 88302; 99221; 99252; J7120; A4216; G0378; G0463; J2405

== ENCOUNTER → 2024-12-09 | Outpatient (CLI) | payer OTHER, SELFPAY ==
--- NOTE | 2024-12-09 17:33 | CT_ITS ---
PROCEDURE: CTA CHEST W/WO CONTRAST 12/09/2024 REASON FOR EXAM: BICUSPID VALVE. TECHNIQUE: Procedure Code: CTCTACHWW Modality: CT Procedure: CTA CHEST W/WO CONTRAST Multiplanar Sagittal and Coronal images were obtained. CONTRAST: Isovue 370 VOLUME: 97 mL One or more dose reduction techniques were used (e.g., Automated exposure control, adjustment of the mA and/or kV according to patient size, use of iterative reconstruction technique). RADIATION DOSE SUMMARY: CTDlvol: 8.99 mGy DLP: 221.66 mGycm COMPARISON: None FINDINGS: The lungs are clear. There is no mediastinal mass or adenopathy. Heart size is nonenlarged. No pericardial effusion. The visualized subdiaphragmatic viscera are unremarkable. By report the patient has a bicuspid valve . This is difficult to appreciate on this study although the aortic valve may be bicuspid.. The aortic annulus measures 2.9 cm on image 15, series 601.2. The aortic root measures 3.0 cm and the sinotubular junction 2.9 cm. Motion artifact limits evaluation fairly significantly. The ascending aorta measures 3.0 cm on image 13 in the aortic arch approximately 2.1 cm. The descending aorta at the level of the inferior pulmonary vein on the left on image 57, series 2 measures 2.1 cm x [address]/CTA Chest W/WO Contrast IMPRESSION: Probable bicuspid aortic valve. Aortic measurements as above. No acute cardiopulmonary abnormality. Reading Location: [facility]
--- NOTE | 2024-12-09 17:33 | CT_ITS ---
PROCEDURE: CTA CHEST W/WO CONTRAST 12/09/2024 REASON FOR EXAM: BICUSPID VALVE. TECHNIQUE: Procedure Code: CTCTACHWW Modality: CT Procedure: CTA CHEST W/WO CONTRAST Multiplanar Sagittal and Coronal images were obtained. CONTRAST: Isovue 370 VOLUME: 97 mL One or more dose reduction techniques were used (e.g., Automated exposure control, adjustment of the mA and/or kV according to patient size, use of iterative reconstruction technique). RADIATION DOSE SUMMARY: CTDlvol: 8.99 mGy DLP: 221.66 mGycm COMPARISON: None FINDINGS: The lungs are clear. There is no mediastinal mass or adenopathy. Heart size is nonenlarged. No pericardial effusion. The visualized subdiaphragmatic viscera are unremarkable. By report the patient has a bicuspid valve . This is difficult to appreciate on this study although the aortic valve may be bicuspid.. The aortic annulus measures 2.9 cm on image 15, series 601.2. The aortic root measures 3.0 cm and the sinotubular junction 2.9 cm. Motion artifact limits evaluation fairly significantly. The ascending aorta measures 3.0 cm on image 13 in the aortic arch approximately 2.1 cm. The descending aorta at the level of the inferior pulmonary vein on the left on image 57, series 2 measures 2.1 cm x [address]/CTA Chest W/WO Contrast IMPRESSION: Probable bicuspid aortic valve. Aortic measurements as above. No acute cardiopulmonary abnormality. Reading Location: [facility]
== END | disposition home or self-care (01) ==
LOC: CT 17:31
PROVIDERS: PCP Internal Medicine; Referring Provider Internal Medicine Cardiovascular Disease; Visit Provider Internal Medicine Cardiovascular Disease
DX: Q23.81 Bicuspid aortic valve (principal)
CPT/HCPCS: 71275; Q9967

== ENCOUNTER → 2024-12-23 | Outpatient (CLI) | payer OTHER, SELFPAY ==
--- NOTE | 2024-12-23 10:45 | ECHOD_ITS ---
Reason For Study Reason For Study: BICUSPID AORTA Procedure This was a 2D Doppler, Color Flow transthoracic echocardiogram. Exam performed in department. Left Ventricle Normal LV size. Left ventricular systolic function is normal. The left ventricular ejection fraction is 55 %. No regional wall motion abnormalities noted. Right Ventricle Normal RV size. Normal systolic function. Atria Normal left atrium. Normal right atrium. Mitral Valve Normal mitral valve. Tricuspid Valve Normal tricuspid valve. Aortic Valve Bicuspid aortic valve. Mild (1+) eccentric aortic valve insufficiency. Pulmonic Valve Normal pulmonic valve. Great Vessels Normal aortic root. The sinus of valsalva is mildly dilated. Sinus of Valsalva dimension is 3.9 cm. The pulmonary artery is normal size. Inferior vena cava collapse with respiration. Pericardium/Pleural No pericardial effusion. MMode/2D Measurements & Calculations LVIDd: 5.2 cm IVSd: 1.0 cm LVOT diam: 2.0 cm LVIDs: 4.1 cm LVPWd: 0.74 cm LVOT area: 3.2 cm2 RVDd: 3.2 cm FS: 21.2 % Ao root diam: 3.1 cm LAV(MOD-bp): 30.3 ml LVAd ap4: 25.3 cm2 LAV(MOD-bp) Indexed: 18.1 ml/m2 LVLd ap4: 7.5 cm LAV(MOD-sp2): 26.9 ml EDV(MOD-sp4): 71.4 ml LAV(MOD-sp4): 28.3 ml EDV(sp4-el): 72.3 ml LVAs ap4: 16.4 cm2 LVLs ap4: 6.5 cm ESV(MOD-sp4): 35.4 ml ESV(sp4-el): 35.1 ml EF(MOD-sp4): 50.5 % EF(sp4-el): 51.4 % SV(MOD-sp4): 36.0 ml SV(sp4-el): 37.2 ml LA A4 area: 13.7 cm2 SI(MOD-sp4): 21.5 ml/m2 LA dimension(2D): 2.3 cm RA A4 area: 12.6 cm2 Time Measurements MV dec time: 0.20 sec Doppler Measurements & Calculations MV E max [place]: 53.7 cm/sec Lat Peak E' [place]: 19.8 cm/sec Med Peak E' [place]: 8.9 cm/sec MV A max [place]: 33.6 cm/sec E/E' lat: 2.7 E/E' med: 6.0 MV E/A: 1.6 Ao V2 max: 114.3 cm/sec AI max [place]: 467.2 cm/sec MV dec slope: 281.8 cm/sec2 Ao max P.2 mmHg AI max P.4 mmHg Ao V2 mean: 82.0 cm/sec Ao mean P.1 mmHg AI dec slope: 250.0 cm/sec2 Ao V2 VTI: 28.0 cm AI P1/2t: 547.4 msec AV (velocity ratio): 0.68 SILVIA(I,D): 2.2 cm2 SILVIA(V,D): 2.3 cm2 LV V1 max: 82.3 cm/sec SV(LVOT): 60.2 ml PA V2 max: 63.9 cm/sec LV V1 max P.7 mmHg PA V2 mean: 49.5 cm/sec LV V1 mean P.7 mmHg LV V1 mean: 61.9 cm/sec LV V1 VTI: 18.9 cm ECHO/Echo Complete Interpretation Summary Normal LV size. Left ventricular systolic function is normal. The left ventricular ejection fraction is 55 %. Bicuspid aortic valve. Mild (1+) eccentric aortic valve insufficiency. Ordering Physician: Crescencio Courtney Referring Physician: Crescencio Courtney Performed By: Thi Dsouza RCS
== END | disposition home or self-care (01) ==
LOC: CVS 10:45
PROVIDERS: PCP Internal Medicine; Referring Provider Internal Medicine Cardiovascular Disease; Visit Provider Internal Medicine Cardiovascular Disease
DX: Q23.81 Bicuspid aortic valve (principal)
CPT/HCPCS: 93306

== ENCOUNTER 2025-03-01 15:21 | Outpatient (RCR) | payer OTHER, SELFPAY | END 2025-03-02 23:59 | LOC: NS 15:21 | PROVIDERS: PCP Internal Medicine; Visit Provider Clinical Nurse Specialist | DX: Z71.3 Dietary counseling and surveillance (principal); E66.9 Obesity, unspecified; Z68.27 Body mass index [BMI] 27.0-27.9, adult | CPT/HCPCS: 97802 ==